=== PATIENT | female | born 1955 | race African-American/Black ===

== ENCOUNTER 2019-05-23 03:16 | Observation (INO) | payer OTHER, SELFPAY ==
[2019-05-23] VITALS (9 sets, daily range): BP systolic 133–166; BP diastolic 69–105; PULSE 68–94; RESP 14–20; TEMP 36.2–36.7; O2SAT 93–95; BMI 52.0
--- NOTE | ~2019-05-23 | CT_ITS ---
EXAMINATION: CT brain wo con DATE: 05/23/2019 04:21 INDICATION: Frequent falls. TECHNIQUE: Computed tomography (CT) of the head was performed without intravenous contrast. The mA wa s adjusted according to patient size. Iterative reconstruction technique was employed. The dose-lengt h product was 681.00 mGy-cm. COMPARISON: Head CT 10/02/2018 FINDINGS: There are scattered areas of low attenuation in the cerebral white matter, which is within normal limits for the patient's age. There is no intracranial hemorrhage, acute infarction, or abnorm al intracranial mass lesion. The ventricles are normal in size. There is multifocal dental disease. T he paranasal sinuses are clear. The mastoid air cells are normal. The orbits are normal. IMPRESSION: 1. Normal aging brain. Reviewed, dictated and finalized at location A. ECTOR AIR CARRIER IMPRESSION: 1. Normal aging brain.
--- NOTE | ~2019-05-23 | XR_ITS ---
EXAMINATION: XR knee LT 3V DATE: 05/23/2019 17:00 INDICATION: Generalized left knee pain TECHNIQUE: Anteroposterior, oblique and crosstable lateral views of the left knee were obtained COMPARISON: None. FINDINGS: Alignment is normal. No fracture. Severe tricompartmental osteoarthritis with remodeling of the medi al tibial plateau. Prominent hypertrophic marginal osteophytes along the medial and posterior aspects of the medial femoral condyle. No joint effusion/layering lipohemarthrosis. Soft tissues are unremar kable. IMPRESSION: 1. Medial compartment predominant severe tricompartmental osteoarthritis at the left knee. No acute o sseous abnormality. Reviewed, dictated and finalized at location A. RIAL MAN IMPRESSION: 1. Medial compartment predominant severe tricompartmental osteoarthritis at the left knee. No acute osseous abnormality.
--- NOTE | ~2019-05-23 | XR_ITS ---
EXAMINATION: XR foot LT 2V DATE: 05/23/2019 03:43 INDICATION: Left foot pain. TECHNIQUE: 2 views of left foot were obtained. COMPARISON: None. FINDINGS: Bone alignment is normal. No fracture. There is mild osteoarthritis of first metatarsophala ngeal joint and some of the interphalangeal joints. There is mild to moderate osteoarthritis of many of the midfoot joints. There is an enthesophyte at plantar aspect of calcaneal tuberosity. IMPRESSION: 1. Polyarticular osteoarthritis. Reviewed, dictated and finalized at location A. OTHEQUE DANCER
--- NOTE | 2019-05-23 03:48 | ED.GENADULT ---
HPI - General Adult General Chief complaint: Extremity Injury, Lower Stated complaint: leg pain Time Seen by Provider: 05/23/19 03:18 History of Present Illness HPI narrative: History limited due to the fact that she is uncooperative and an extremely poor historian. Brought in by EMS for falls and pain. She has reportedly fallen at least 4 times in the past 24 hours. The first time she was brought here by EMS she had labs and imaging done which did not reveal any acute issues and she was discharged home. EMS was called out 2 more times for falls and she declined transport. The last time she fell she again requested transport to the hospital. She reports pain in the right foot and leg. It is unclear when this pain started. It is also unclear why she is falling or if she has sustained any injury. Related Data Home Medications Medication Instructions Recorded Confirmed amiodarone 200 mg PO DAILY 05/22/19 amlodipine 5 mg PO DAILY 05/22/19 atorvastatin 40 mg PO DAILY 05/22/19 hydrochlorothiazide 25 mg PO DAILY 05/22/19 rivaroxaban [Xarelto] 20 mg PO DAILY 05/22/19 sitagliptin [Januvia] 100 mg PO DAILY 05/22/19 Allergies Allergy/AdvReac Type Severity Reaction Status Date / Time Penicillins Allergy Intermediate Rash Verified 05/23/19 03:24 ofloxacin Allergy Mild Rash Verified 05/23/19 03:24 Review of Systems Review of Systems: All systems reviewed & are unremarkable except as noted in HPI and below Constitutional: Constitutional: Denies fever(s) PMFSH Past Medical History Medical History Acid reflux disease with ulcer Arthritis Atrial fibrillation and flutter Chronic back pain Diabetes Hard of hearing HTN (hypertension) Hypercholesterolemia Opiate use Uses Tramadol daily per patient for arthritis Postmenopausal Surgical History Surgical History H/O total hysterectomy H/O tubal ligation Hx of cholecystectomy Family History Family History Father Patient's father is in good health Hypertension Sibling Patient's sister is in good health Patient's brother is in good health Mother Family history of malignant neoplasm Patient's mother is Social History Social History Smoking status: Never smoker Alcohol intake: never Substance use: never Exam Const: General: alert and ill appearing chronically Nutritional Appearance: obese morbidly obese Orientation/consciousness: patient oriented x3 HENMT: Head: normal to inspection Resp: Effort & Inspection: normal respiratory effort Auscultation: clear to auscultation bilaterally Cardio: Rhythm: abnormal rhythm irregularly irregular GI: GI Palp: Yes Soft to palpation and No Tenderness to palpation present (GI) Skin: General skin exam: normal color Neuro: General: patient oriented x3, moves all extremities and no focal motor deficits Speech: normal speech Extrem: Other: Inconsistent exam with diffuse tenderness in LLE Course Vital Signs Vital signs: Vital Signs Temperature 36.6 C 05/23/19 03:14 Pulse Rate 88 05/23/19 03:14 Respiratory Rate 16 05/23/19 03:14 Blood Pressure 166/105 H 05/23/19 03:14 Pulse Oximetry 95 05/23/19 03:14 Temperature 36.6 C 05/23/19 03:14 Pulse Rate 88 05/23/19 03:14 Respiratory Rate 16 05/23/19 03:14 Blood Pressure 166/105 H 05/23/19 03:14 Pulse Oximetry 95 05/23/19 03:14 Medical Decision Making [facility] Narrative Medical decision making narrative: Given her multiple falls and the fact that she lives alone without any support system she will need to be admitted for observation and possible placement. Medical Records Medical records reviewed: Yes I reviewed the patient's medical records. Vital Signs Vital Signs: Vital Signs Temper
[2019-05-23 04:02] LABS: Basophils Percent Auto 0.2 % (0.2-1.2); Eosinophils Percent Auto 0.1 % (0-4.4); Hematocrit 39.3 % (37.0-47.0); Hemoglobin 12.5 g/dL (12.0-15.0); Immature Granulocyte Absolute 0.03 K/mm3 (0.00-0.031); Immature Granulocyte Percent A 0.3 % (0-0.5); Lymphocytes Absolute Auto 1.62 K/mm3 (0.9-3.2); Lymphocytes Percent Auto 18.7 % (18.3-44.2); Mean Corpuscular HGB Conc 31.8 g/dl (32-36); Mean Corpuscular Hemoglobin 28.7 pg (26-34); Mean Corpuscular Volume 90.3 fl (80-100); Mean Platelet Volume 10.7 fl (7.4-10.4); Monocytes Absolute Auto 0.8 K/mm3 (0.1-0.6); Monocytes Percent Auto 9.4 % (2.6-8.5); Neutrophils Absolute Auto 6.2 K/mm3 (1.3-6.7); Neutrophils Percent Auto 71.3 % (45.5-73.1); Platelet Count Result 243 k/mm3 (150-375); Red Blood Count 4.35 M/mm3 (4.2-5.4); Red Cell Distribution Width 13.8 % (11.5-14.5); White Blood Count 8.7 K/mm3 (4.5-10.0)
[2019-05-23 04:13] LABS: Add Urine Microscopic? YES; Appearance Urine Cloudy (Clear); Bacteria Urine Trace /hpf; Bilirubin Urine Negative (Negative); Blood Urine 2+ (Negative); Color Urine Yellow (Yellow); Glucose Urine UA 1+ mg/dL (Negative); Ketones Urine Negative (Negative); Leukocyte Esterase Ur Negative LEU/UL (Negative); Mucus Urine Rare /lpf; Nitrate Urine Negative (Negative); Protein Urine 1+ mg/dL (Negative); RBC Urine >75 /hpf (0-2); Specific Grav Ur 1.016 (1.001-1.035); Urobilinogen Urine Negative mg/dL (<2.0); WBC Urine 0-3 /hpf
[2019-05-23 04:14] LABS: Alanine Aminotransferase 24 U/L (4-35); Albumin Level 4.1 g/dL (3.5-5.1); Alkaline Phosphatase 130 U/L (38-126); Aspartate Amino Transferase 26 U/L (14-36); Bilirubin,Total 0.7 mg/dL (0.2-1.3); Blood Urea Nitrogen 15 mg/dL (7-17); Calcium 9.4 mg/dL (8.4-10.2); Carbon Dioxide 29 mmol/L (22-30); Chloride 99 mmol/L (98-107); Estimated CRCL calculation 157 ml/min; Estimated Glomerular Filt Rate > 60; Glucose 285 mg/dL (65-105); Sodium 139 mmol/L (137-145)
[2019-05-23 04:17] LABS: INR 2.1; Prothrombin Time 23.1 Seconds (11.1-14.7)
[2019-05-23 04:18] LABS: Partial Thromboplastin Time 37.3 SECONDS (22.3-36.8)
--- NOTE | 2019-05-23 05:45 | ADMGEN ---
This patient, Macey Reyes, was admitted to Medical Room 349-01. Patient/family oriented to hospital policies and general routines including ID bracelet, bed and alarms, visiting hours, pain management, procedures, bathroom and other care routines, personal items, smoking policy, room service/diet, and visiting hours. Valuables list has been completed. Information on how to activate the Rapid Response Team has been discussed. Patient/Family are encouraged to report perceived risks to care and to ask questions if they do not understand what they are told or what they should do.
[2019-05-23] MEDS: LACTATED RINGERS 1,000 ML 125 ML IV CONT (06:43)
[2019-05-23] MEDS: ACETAMINOPHEN 500 MG TABLET 1000 MG PO (07:39)
[2019-05-23 07:49] LABS: Glucose Point of Care 255 (65-105)
[2019-05-23] MEDS: POTASSIUM CHLORIDE 20 MEQ TABLET 40 MEQ PO ×2 (08:05→18:06)
[2019-05-23] MEDS: INSULIN ASPART (*BKC) 100 UNITS/ML SUB-Q ×2 (08:41→12:51)
[2019-05-23] MEDS: TRAMADOL HCL 50 MG TABLET PO ×2 (09:51→16:32)
[2019-05-23] MEDS: FLUTICASONE PROPIONATE 0.05% NA SPR 16 GM BTL (*BKC) 2 SPRAY NASAL (09:53)
[2019-05-23] MEDS: ATORVASTATIN 40 MG TABLET PO (09:55)
[2019-05-23] MEDS: glipiZIDE 5 MG TABLET 10 MG PO (09:55)
[2019-05-23] MEDS: AMIODARONE HCL 200 MG TABLET PO (10:06)
[2019-05-23] MEDS: AMLODIPINE BESYLATE 5 MG TABLET PO (10:06)
[2019-05-23] MEDS: carvediloL 25 MG TABLET PO ×2 (10:06→21:11)
[2019-05-23] MEDS: LOSARTAN POTASSIUM 100 MG TABLET PO (10:07)
[2019-05-23] MEDS: PANTOPRAZOLE 40 MG TABLET PO (10:07)
[2019-05-23] MEDS: CLONIDINE HCL 0.2 MG TABLET PO ×2 (10:07→21:11)
--- NOTE | 2019-05-23 11:06 | PM.IMHP ---
H&P: HPI History of Present Illness Chief complaint: GENERALIZED WEAKNESS Narrative: Date of Service 05/23/19 The supervising physician for this history and physical is Dr. Indy Saucedo. Macey Reyes is a 63 year old female with history of non insulin-dependent type 2 diabetes mellitus with peripheral neuropathy, paroxysmal atrial fibrillation with chronic anticoagulation on Xarelto, hyperlipidemia, hypertension, osteoarthritis, who presented to the ED for evaluation after a fall. She has fallen 4 times in the last 2 days at home. She lives at home by herself. She presented to the ED yesterday, 05/22 after falling at home. Right hip and right shoulder were imaged in the ED and revealed osteoarthritis with no acute fractures. She was discharged home from the ED yesterday. She re-presented again early this morning to the ED after falling 3 more times at home. EMS was activated 2 more times yesterday following her discharge from the ED, but she declined transport back to the ED until the 3rd EMS visit last night. She reports using a walker for ambulation and tells me she has been getting progressively weaker over the last several weeks to months. She feels that her peripheral neuropathy contributes because she is not able to feel her feet very well. Routine labs on arrival are grossly normal aside from a mild hypokalemia. Vital signs are stable aside from blood pressure elevated 159/81 prior to her morning medications being resumed. Today she complains of left leg pain. Left foot x-ray shows again osteoarthritis without any fractures. CT head demonstrates no acute intracranial findings. She denies any recent illness, fevers, or chills. She denies any chest pain, shortness of breath, nausea, vomiting, diarrhea, constipation, hematochezia or melena, dysuria or hematuria. Patient and her daughter are concerned for her safety returning home. Patient is admitted to observation for multiple recent falls and generalized weakness. Review of Systems Review of Systems: Narrative: Patient complains of left leg pain today, otherwise no complaints. No chest pain, shortness of breath, nausea, or vomiting. Tolerating PO intake. Twelve systems were reviewed with pertinent positives and negatives as per HPI. [facility] Past Medical History Medical History (Updated 05/23/19 @ 16:37 by Leslie Redmond PA-C) Arthritis Chronic back pain Diabetes GERD (gastroesophageal reflux disease) Hard of hearing HTN (hypertension) Hypercholesterolemia Liver masses Following with Dr Yossi Diego in [place], being monitored conservatively with surveillance imaging. Opiate use Uses Tramadol daily per patient for arthritis Paroxysmal atrial fibrillation Peripheral neuropathy Postmenopausal Surgical History Surgical History H/O total hysterectomy 04/17/2011 H/O tubal ligation 1982 Hx of cholecystectomy 06/08/1996 Family History Family History Father Patient's father is in good health Hypertension Sibling Patient's sister is in good health Patient's brother is in good health Mother Patient's mother is Coronary artery disease Acute myocardial infarction Social History Social History (Updated 05/23/19 @ 11:20 by Leslie Redmond PA-C) Social History: Ms. 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 She reports she previously was a heavy drinker but now drinks only about 1 glass of wine per month. Never smoker. Reports remote history of marijuana use but not anymore. Her PCP is Dr Matteo Yen. Her surrogate decision maker is her daughter, Virgilio. She is full code status. Smoking status: Never smoker Alcohol intake: never Substance use: never Living arrangements: alone Gender identity (if verbalized by the pat
[2019-05-23 12:22] LABS: Glucose Point of Care 207 (65-105)
[2019-05-23] MEDS: polyethylene glycoL 3350 17 GM POWD.PACK PO (14:10)
[2019-05-23] MEDS: CALCIUM CARBONATE (TUMS) 500 MG (200 MG ELEMENTAL) PO (16:32)
--- NOTE | 2019-05-23 16:55 | PCCCNOTE ---
Met with patient, two daughters and granddaughter at bedside. Patient states she is unable to get out of bed. Daughter reports she is a household personal assistant paid through the state to care for her mother and if she goes to the [facility] she will loose her section 8 housing and the daughter will loose her position as being a paid household personal assistant for her mom. Both daughters report, she cannot go home, but she cannot go to the [facility]. Assured them that patient was discharged and that she would need to either go home or to a facility. Daughter reports, they already gave her bed away at [place]. I provided patient and 2 daughters each with a list of nursing homes that accept [employer] insurance. Encouraged them to look over it and decide where they would like referrals faxed to. Nelly RN, returned to room and stated that the provider has now cancelled discharge so they could get an XRay of her L knee. Will revisit situation after Xray.
[2019-05-23 18:04] LABS: Glucose Point of Care 165 (65-105)
[2019-05-23] MEDS: RIVAROXABAN 20 MG TABLET PO (18:06)
[2019-05-23 22:35] LABS: Glucose Point of Care 182 (65-105)
[2019-05-24] MEDS: TRAMADOL HCL 50 MG TABLET PO ×3 (00:33→16:40)
[2019-05-24 05:06] VITALS: BP 146/87; PULSE 75; RESP 14; TEMP 36.3; O2SAT 100
[2019-05-24] MEDS: ACETAMINOPHEN 500 MG TABLET 1000 MG PO (05:14)
[2019-05-24 06:14] LABS: Blood Urea Nitrogen 14 mg/dL (7-17); Calcium 8.9 mg/dL (8.4-10.2); Carbon Dioxide 30 mmol/L (22-30); Chloride 98 mmol/L (98-107); Estimated CRCL calculation 157 ml/min; Estimated Glomerular Filt Rate > 60; Glucose 212 mg/dL (65-105); Potassium 3.5 mmol/L (3.4-5.0); Sodium 134 mmol/L (137-145)
[2019-05-24] MEDS: glipiZIDE 5 MG TABLET 10 MG PO (08:29)
[2019-05-24 08:30] VITALS: PULSE 71
[2019-05-24] MEDS: AMIODARONE HCL 200 MG TABLET PO (08:30)
[2019-05-24] MEDS: carvediloL 25 MG TABLET PO (08:30)
[2019-05-24] MEDS: LOSARTAN POTASSIUM 100 MG TABLET PO (08:31)
[2019-05-24] MEDS: PANTOPRAZOLE 40 MG TABLET PO (08:31)
[2019-05-24] MEDS: AMLODIPINE BESYLATE 5 MG TABLET PO (08:31)
[2019-05-24] MEDS: FLUTICASONE PROPIONATE 0.05% NA SPR 16 GM BTL (*BKC) 2 SPRAY NASAL (08:31)
[2019-05-24] MEDS: CLONIDINE HCL 0.2 MG TABLET PO (08:31)
[2019-05-24] MEDS: ATORVASTATIN 40 MG TABLET PO (08:31)
[2019-05-24] MEDS: polyethylene glycoL 3350 17 GM POWD.PACK PO (08:32)
[2019-05-24 09:10] LABS: Glucose Point of Care 198 (65-105)
[2019-05-24 12:42] LABS: Glucose Point of Care 188 (65-105)
[2019-05-24 14:00] VITALS: BP 125/56; PULSE 86; RESP 12; TEMP 36.5; O2SAT 97
[2019-05-24] MEDS: RIVAROXABAN 20 MG TABLET PO (16:40)
[2019-05-24] MEDS: INSULIN ASPART (*BKC) 100 UNITS/ML SUB-Q (17:14)
[2019-05-24 17:29] LABS: Glucose Point of Care 213 (65-105)
--- NOTE | 2019-05-24 20:38 | PM.DS ---
DS: Diagnosis Admitting Diagnosis Admitting Diagnosis: Hypokalemia Discharge Diagnosis (1) Generalized weakness: Code(s): R53.1 - Weakness Status: Acute Assessment and Plan: Date of Service 05/24/19: Ms. Reyes is a 63yo F with history of osteoarthritis, type 2 diabetes mellitus, paroxysmal atrial fibrillation, and hypertension who presented to the ED on 05/22 and 05/23 due to multiple falls at home. Several x rays were performed which revealed diffuse osteoarthritis, no fracture or other acute bony abnormalities. All imaging noted below. Routine labs revealed hypokalemia and she received potassium supplementation. She could not stand or transfer independently and it was felt she would be unsafe discharge home back to her apartment where she lived alone. Placement was arranged at [facility]. She was discharged 05/24 in stable condition. Deconditioning, osteoarthritis pain, morbid obesity, chronic lower extremity edema, and peripheral neuropathy may contribute. (2) Frequent falls: Code(s): R29.6 - Repeated falls Status: Acute Assessment and Plan: See above. (3) Diabetes: Qualifiers: Diabetes mellitus type: type 2 Diabetes mellitus terminal block assembler insulin use: without terminal block assembler use Diabetes mellitus complication status: with neurologic complications Diabetes mellitus complication detail: with polyneuropathy Qualified Code(s): E11.42 - Type 2 diabetes mellitus with diabetic polyneuropathy Code(s): E11.9 - Type 2 diabetes mellitus without complications Status: Acute Assessment and Plan: Continue her home glipizide and Januvia. (4) Paroxysmal atrial fibrillation: Code(s): I48.0 - Paroxysmal atrial fibrillation Status: Acute Assessment and Plan: Stable. Her bottom wheeler is Dr. Wilson. Maintained on amiodarone, Coreg, Xarelto. (5) HTN (hypertension): Qualifiers: Hypertension type: essential hypertension Qualified Code(s): I10 - Essential (primary) hypertension Code(s): I10 - Essential (primary) hypertension Status: Acute Assessment and Plan: Continue home antihypertensive regimen with amlodipine, Coreg, losartan. HCTZ held due to hypokalemia. (6) Arthritis: Code(s): M19.90 - Unspecified osteoarthritis, unspecified site Status: Acute Assessment and Plan: Patient has a history of osteoarthritis and imaging confirms same. Continue her home tramadol as needed for pain. Follow up with PCP and/or ortho outpatient. (7) Hypokalemia: Code(s): E87.6 - Hypokalemia Status: Acute Assessment and Plan: Potassium low and replaced orally. Stable day of discharge and replaced. (8) DVT prophylaxis: Code(s): Z29.9 - Encounter for prophylactic measures, unspecified Status: Acute Assessment and Plan: Continue her home Xarelto. DS: Summary Time Spent with Patient Time attestation: Total time spent providing and/or coordinating discharge services: 35 minutes Exam Narrative: Exam Narrative: General: Morbidly obese female resting supine in bed in no acute distress. HEENT: Normocephalic, EOMI, oral mucosa moist, poor dentition. Cardiovascular: Rate and rhythm are regular. Systolic murmur heard best over left sternal border. Respiratory: Lungs clear to auscultation all gurrola. Non-labored breathing. Tolerating room air. Abdomen: Protuberant, soft, non-tender, bowel sounds present. Extremities: Peripheral pulses intact. No edema or erythema. Skin wrinkling on JOVANI lower extremities consistent with improved edema - patient reports her legs were previously very swollen. Neuro: No focal neurological deficits. Speech is clear. DS: Data Data Com
== END 2019-05-24 18:05 ==
LOC: ANHED 03:56 → ANH3MED 04:42
PROVIDERS: Physician Assistant; Admitting Provider Family Medicine; Emergency Provider Emergency Medicine; PCP Internal Medicine; Visit Provider Hospitalist
DX: R53.1 Weakness (principal); E87.6 Hypokalemia; M79.605 Pain in left leg; M19.90 Unspecified osteoarthritis, unspecified site; R60.0 Localized edema; E11.42 Type 2 diabetes mellitus with diabetic polyneuropathy; I48.0 Paroxysmal atrial fibrillation; I10 Essential (primary) hypertension; E78.5 Hyperlipidemia, unspecified; E66.01 Morbid (severe) obesity due to excess calories; Z68.43 Body mass index [BMI] 50.0-59.9, adult; R29.6 Repeated falls; W19.XXXA Unspecified fall, initial encounter; Z79.01 Long term (current) use of anticoagulants; Z79.84 Long term (current) use of oral hypoglycemic drugs; Z79.899 Other long term (current) drug therapy
CPT/HCPCS: 36415; 51701; 70450; 73562; 73620; 80048; 80053; 81001; 84132; 85025; 85610; 85730; 96360; 96361; 97162; 97166; 99285; A9270; G0378; G0379; J1815; J7120

== ENCOUNTER 2019-07-22 10:30 | Outpatient (RCR) | payer OTHER, SELFPAY | END 2019-07-22 23:59 | disposition home or self-care (01) | LOC: ANHAUDIO 10:30 | PROVIDERS: PCP Internal Medicine; Visit Provider Internal Medicine | DX: Z46.1 Encounter for fitting and adjustment of hearing aid (principal) | CPT/HCPCS: 99199; V5264 ==

== ENCOUNTER 2019-09-16 11:43 | Inpatient (IN) | payer OTHER, SELFPAY ==
[2019-09-16] VITALS (20 sets, daily range): BP systolic 81–204; BP diastolic 58–115; PULSE 70–123; RESP 6–29; TEMP 35.1–36.8; O2SAT 89–100; BMI 60.5
--- NOTE | ~2019-09-16 | XR_ITS ---
EXAMINATION: XR chest 1V portable DATE: 09/20/2019 06:08 INDICATION: Cardiac arrest. Acute respiratory failure. Edema. TECHNIQUE: frontal view of the chest was obtained. COMPARISON: Chest radiograph dated 09/19/19 FINDINGS: Endotracheal tube tip 4.2 cm above the anshu. Right internal jugular central venous catheter with di stal tip in the caudal superior vena cava. Nasogastric tube extends below the left hemidiaphragm wit h distal tip collimated off the study. Opacities in the left lower lung zone with blunting of the costophrenic angle consistent with small l eft pleural effusion and associated atelectasis and/or pneumonia. No pulmonary edema, pneumothorax or right pleural effusion. Cardiomegaly. IMPRESSION: 1. Small left pleural effusion with associated left basilar atelectasis and/or pneumonia. 2. Cardiomegaly. Reviewed, dictated and finalized at location A.
--- NOTE | ~2019-09-16 | XR_ITS ---
EXAMINATION: XR chest 1V portable DATE: 09/19/2019 06:00 INDICATION: Cardiac arrest. Acute respiratory failure. Edema. TECHNIQUE: frontal view of the chest was obtained. COMPARISON: Chest radiograph dated 09/18/2019 FINDINGS: Endotracheal tube tip 6.0 cm above the anshu. Right internal jugular central venous catheter with di stal tip at the mid superior vena cava. Nasogastric tube extends below the left hemidiaphragm with d istal tip collimated off the study. Marked decrease in the bilateral perihilar opacities consistent with resolving pulmonary edema. Gradi ent of hazy airspace opacities in the left mid to lower lung zone consistent with small posterior lay ering left pleural effusion with associated left basilar atelectasis and/or pneumonia. Cardiomegaly. IMPRESSION: 1. Near complete resolution of prior perihilar pulmonary edema likely related to congestive heart dwayne lure. 2. Small left pleural effusion with associated left basilar atelectasis and/or pneumonia. 3. Cardiomegaly. 4. Endotracheal tube tip 6.0 cm above the anshu. Could consider advancement by 4 cm. Reviewed, dictated and finalized at location A. IMPRESSION: 1. Near complete resolution of prior perihilar pulmonary edema likely related t o congestive heart failure. 2. Small left pleural effusion with associated left basilar atelectasis and/or pneumonia. 3. Cardiomegaly. 4. Endotracheal tube tip 6.0 cm above the anshu. Could consider advancement by 4 cm.
--- NOTE | ~2019-09-16 | XR_ITS ---
EXAMINATION: XR chest 1V portable DATE: 09/17/2019 05:54 INDICATION: Acute respiratory failure. TECHNIQUE: A single frontal view of the chest was obtained. COMPARISON: Chest single view 09/16/2019 FINDINGS: There are airspace opacities in all lung zones bilaterally with a perihilar predominance, r ight worse than left. No pleural effusion or pneumothorax. Cardiomegaly is noted. The endotracheal tu be tip is 3.2 cm above the anshu. A right internal jugular central venous catheter is seen with tip at the superior cavoatrial junction. IMPRESSION: 1. Diffuse lung disease with worsening at the lung bases, consistent with pulmonary edema versus pneu monia. 2. Cardiomegaly. Reviewed, dictated and finalized at location A. IMPRESSION: 1. Diffuse lung disease with worsening at the lung bases, consistent with pulmo nary edema versus pneumonia. 2. Cardiomegaly.
--- NOTE | ~2019-09-16 | XR_ITS ---
XR chest ET placement DATE: 09/16/2019 12:32 INDICATION: Respiratory distress TECHNIQUE: Portable AP chest on 09/16/2019 at 1222 hours COMPARISON: 01/27/2019 AP and lateral chest FINDINGS: ET tube in satisfactory position approximately 3 cm above anshu. Moderate elevation right diaphragm. There are extensive bilateral pulmonary infiltrates which predominate centrally, suggesting pulmonary edema. Pneumonia, aspiration and ARDS are additional considerations. An NG tube is identified passing into the stomach. IMPRESSION: Extensive bilateral pulmonary infiltrates with central prominence, suggesting pulmonary e katey most likely ET and NG tubes in satisfactory position Reviewed, dictated and finalized at Location A. Reviewed, dictated and finalized at location A. IMPRESSION: Extensive bilateral pulmonary infiltrates with central prominence, suggesting pulmonary edema most likely ET and NG tubes in satisfactory position
--- NOTE | ~2019-09-16 | XR_ITS ---
XR abdomen NG/feed tube insert DATE: 09/16/2019 12:32 INDICATION: Nasogastric tube placement TECHNIQUE: Portable supine AP view of mid to upper abdomen COMPARISON: None FINDINGS: There is a nasogastric tube in the upper body of the stomach, the proximal port situated fa r beyond the diaphragmatic hiatus. There is gaseous distention of the stomach. There is some gaseous distended dilatation of the proximal small bowel. IMPRESSION: NG tube in proximal stomach Reviewed, dictated and finalized at Location A. Reviewed, dictated and finalized at location A. IMPRESSION: NG tube in proximal stomach
--- NOTE | ~2019-09-16 | XR_ITS ---
EXAMINATION: XR chest 1V portable DATE: 09/21/2019 05:59 INDICATION: Cardiac arrest. Acute respiratory failure. Edema. TECHNIQUE: frontal view of the chest was obtained. COMPARISON: Chest radiograph dated 09/20/2019 FINDINGS: Endotracheal tube tip 4.1 cm above the anshu. Right internal jugular central venous catheter with di stal tip near the superior cavoatrial junction. Nasogastric tube extends below the left hemidiaphrag m with distal tip collimated off the study. Increasing bilateral perihilar opacities. Persistent opacities in the left lower lung zone with blunt ing at the left as phrenic angle consistent with small pleural effusion and associated atelectasis an d/or pneumonia. No pneumothorax. Cardiomegaly. IMPRESSION: 1. Increasing bilateral perihilar opacities most likely pulmonary edema with differential including p neumonia. 2. Opacities in the left lower lung zone consistent with small left pleural effusion and associated a telectasis and/or pneumonia. 3. Cardiomegaly. Reviewed, dictated and finalized at location A. IMPRESSION: 1. Increasing bilateral perihilar opacities most likely pulmonary edema with di fferential including pneumonia. 2. Opacities in the left lower lung zone consistent with small left pleural eff usion and associated atelectasis and/or pneumonia. 3. Cardiomegaly.
--- NOTE | ~2019-09-16 | CT_ITS ---
EXAMINATION: CT brain wo con DATE: 09/21/2019 09:44 INDICATION: Altered mental status TECHNIQUE: Computed tomography (CT) of the head was performed without intravenous contrast. Sagittal and coronal reconstructions were performed. The mA was adjusted according to patient size. Iterative reconstruction technique was employed. The dose-length product was 681.00 mGy-cm. COMPARISON: head CT dated 05/23/2019 FINDINGS: There is diffuse swelling of the brain with cytotoxic edema characterized by significant decrease in gtz-white matter differentiation and effacement of the sulci, ventricles and basal cisterns. The tanika ear increased attenuation along the surface of the brain appear to represent vessels the density of w hich is accentuated by the surrounding lower attenuation cerebral edema. No evident acute intracrania l hemorrhage or abnormal extra axial fluid collection. The orbits and mastoid air cells are normal. C omplete opacification of the left sphenoid and ethmoid sinuses and partial opacification of the left maxillary, left frontal and right sphenoid and ethmoid sinuses. Mild mucosal thickening in the right maxillary sinus. No fracture. IMPRESSION: 1. Cytotoxic edema and swelling throughout the brain with effacement of the subarachnoid spaces, vent ricles and basal cisterns suggesting sequela of global anoxic injury. Reviewed, dictated and finalized at location A. IMPRESSION: 1. Cytotoxic edema and swelling throughout the brain with effacement of the sub arachnoid spaces, ventricles and basal cisterns suggesting sequela of global an oxic injury.
--- NOTE | ~2019-09-16 | XR_ITS ---
EXAMINATION: XR chest port-a-cath/central EXAM DATE: 09/16/2019 16:45 INDICATION: Central line placement. TECHNIQUE: Portable AP frontal chest x-ray was obtained. Comparison is made to prior examination from earlier same date. FINDINGS: There is a new right-sided IJ line in position. Endotracheal tube tip is 3 centimeters abo ve the anshu (ideal range is between 2 to 5 cm). There is a nasogastric tube seen with tip collimat ed off the study, but below the left hemidiaphragm. There is worsening right mid and upper lung zone consolidation. The left perihilar consolidation appe ars unchanged. Mild cardiomegaly. There is no pneumothorax suspected. There are no pleural effusions. IMPRESSION: 1. Line(s) and tube(s) in position. 2. Extensive bilateral airspace disease with mild progression on the right. Reviewed, dictated and finalized at location A.
--- NOTE | ~2019-09-16 | XR_ITS ---
EXAMINATION: XR chest 1V portable INDICATION: Respiratory failure TECHNIQUE: Portable AP chest at 0529 hours COMPARISON: 09/17/2019 FINDINGS: The endotracheal tube ends approximately 2.3 cm above the anshu. The nasogastric tube is f ollowed as far as the stomach. Its tip is beyond the inferior margin of the radiograph. A right inter nal jugular central venous catheter ends with its tip at the superior cavoatrial junction. Patchy dedra ateral airspace opacities persist without significant change in all lung zones. There is stable cardi omegaly. No pleural effusion or pneumothorax is identified. IMPRESSION: 1. Diffuse lung disease without significant change, consistent with pulmonary edema and/or pneumonia. 2. Stable cardiomegaly. Reviewed, dictated and finalized at location A. IMPRESSION: 1. Diffuse lung disease without significant change, consistent with pulmonary e katey and/or pneumonia. 2. Stable cardiomegaly.
[2019-09-16 12:06] LABS: Base Excess ABG -23.6 mEq/l (+/-2.0); Carboxyhemoglobin 0.3 % THb (0-2.0); Fractional Inspired Oxygen 100 %; HCO3 ABG 12.1 mEq/l (22.0-26.0); Methemoglobin ABG 0.3 %THb (0-1.5); Oxygen Content ABG 16.6 %vol (16.0-22.0); Oxygen Saturation ABG 94.8 % (95.0-100.0); Oxyhemoglobin 94.4 % THb (90.0-100.0); PO2 ABG 137.1 mmHg (80.0-100.0); PO2 FiO2 Ratio Arterial Blood 1.37 %; Total Hemoglobin 12.3 g/dL (12.0-18.0)
[2019-09-16 12:07] LABS: Device AMBU BAG; Modified Allen's Test Pass; PCO2 ABG 84.9 mmHg (35.0-45.0); Site Drawn RIGHT RADIAL; pH ABG 6.773 (7.350-7.450)
--- NOTE | 2019-09-16 12:34 | ED.CPR ---
HPI - CPR General Chief Complaint: Cardiac Arrest/CPR Stated Complaint: CARDIAC ARREST Time Seen by Provider: 09/16/19 11:43 Source: EMS and old records reviewed Mode of arrival: EMS Limitations: clinical condition History of Present Illness HPI narrative: Patient is a 64-year-old female who presents to the emergency department via EMS in cardiac arrest. Patient was at home and was moving for her chair when she felt anxious and collapsed. On arrival of EMS, patient was found to be in PEA and respiratory arrest. Patient received CPR and 3 rounds of epinephrine. Patient was intubated by EMS with 7.5 ET tube and had good capnography waveform noted by paramedics. Reported history from EMS was diabetes and heart failure. MD complaint: stopped breathing and collapsed during rest Timing confirmed by: family member Place: home Initial findings in the field: unresponsive, no respirations and PEA Related Data Home Medications Medication Instructions Recorded Confirmed Xarelto 20 mg PO DAILY 05/22/19 09/16/19 amiodarone 200 mg PO DAILY 05/22/19 09/16/19 atorvastatin 40 mg PO DAILY 05/22/19 09/16/19 fluticasone propionate [Flonase 2 spray INTRANASAL DAILY 05/23/19 09/16/19 Allergy Relief] amlodipine 5 mg PO DAILY 09/16/19 09/16/19 Allergies Allergy/AdvReac Type Severity Reaction Status Date / Time Penicillins Allergy Intermediate Rash Verified 05/23/19 03:24 ofloxacin Allergy Mild Rash Verified 05/23/19 03:24 Review of Systems Review of Systems: ROS unobtainable: Yes unobtainable due to endotracheal tube and unobtainable due to medical condition PENDING SALE TO [facility] Past Medical History Medical History Arthritis Chronic back pain Diabetes GERD (gastroesophageal reflux disease) Hard of hearing HTN (hypertension) Hypercholesterolemia Liver masses Following with Dr Yossi Diego in [place], being monitored conservatively with surveillance imaging. Opiate use Uses Tramadol daily per patient for arthritis Paroxysmal atrial fibrillation Peripheral neuropathy Postmenopausal Surgical History Surgical History H/O total hysterectomy 04/17/2011 H/O tubal ligation 1982 Hx of cholecystectomy 06/08/1996 Family History Family History Father Patient's father is in good health Hypertension Sibling Patient's sister is in good health Patient's brother is in good health Mother Patient's mother is Coronary artery disease Acute myocardial infarction Social History Social History Social History: Ms. 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 She reports she previously was a heavy drinker but now drinks only about 1 glass of wine per month. Never smoker. Reports remote history of marijuana use but not anymore. Her PCP is Dr Matteo Yen. Her surrogate decision maker is her daughter, Virgilio. She is full code status. Smoking status: Never smoker Alcohol intake: never Substance use: never Gender identity (if verbalized by the patient): Female Spiritual care concerns: No Agree to blood products: Yes Exam Const: General: patient obtunded Nutritional Appearance: obese morbidly obese Limitations: altered mental status Eyes: Pupils: Dilated pupils and Fixed pupils Resp: Effort & Inspection: other (Apneic, ET tube in place) Auscultation: rales diffuse and other (Breath sounds equal) Cardio: Rate: regular rate Rhythm: regular rhythm Other: Initially pulseless, then with radial pulses palpable bilaterally as well as carotid. GI: Inspection: distended GI Palp: Yes Soft to palpation Auscultation: Hypoactive bowel sounds present Other: Shiley Skin: General skin exam: normal color
[2019-09-16 12:43] LABS: Basophils Percent Auto 0.5 % (0.2-1.2); Eosinophils Absolute Auto 0.1 K/mm3 (0-0.3); Eosinophils Percent Auto 1.9 % (0-4.4); Hematocrit 40.6 % (37.0-47.0); Hemoglobin 11.2 g/dL (12.0-15.0); INR 2.1; Immature Granulocyte Absolute 0.12 K/mm3 (0.00-0.031); Immature Granulocyte Percent A 1.9 % (0-0.5); Lymphocytes Absolute Auto 4.38 K/mm3 (0.9-3.2); Lymphocytes Percent Auto 68.2 % (18.3-44.2); Mean Corpuscular HGB Conc 27.6 g/dl (32-36); Mean Corpuscular Hemoglobin 27.9 pg (26-34); Mean Platelet Volume 10.5 fl (7.4-10.4); Monocytes Absolute Auto 0.4 K/mm3 (0.1-0.6); Monocytes Percent Auto 6.4 % (2.6-8.5); Neutrophils Absolute Auto 1.4 K/mm3 (1.3-6.7); Neutrophils Percent Auto 21.1 % (45.5-73.1); Nucleated Red Blood Cells Perc 0.6 % (0.0-0.2); Partial Thromboplastin Time 42.3 SECONDS (22.3-36.8); Platelet Count Result 238 k/mm3 (150-375); Prothrombin Time 22.8 Seconds (11.1-14.7); Red Blood Count 4.02 M/mm3 (4.2-5.4); Red Cell Distribution Width 14.6 % (11.5-14.5); White Blood Count 6.4 K/mm3 (4.5-10.0)
[2019-09-16 12:46] LABS: Hypochromasia 1+ (NORMAL); Platelet Estimate Adequate (Adequate)
[2019-09-16] MEDS: DOPamine 400 MG/D5W 250 ML 400 MG/250 ML BAG 78 MG IV CONT (12:56)
[2019-09-16 12:59] LABS: Add Urine Microscopic? NO; Appearance Urine Clear (Clear); Bilirubin Urine Negative (Negative); Blood Urine Negative (Negative); Color Urine Colorless (Yellow); Glucose Urine UA Negative (Negative); Ketones Urine Negative (Negative); Leukocyte Esterase Ur Negative LEU/UL (Negative); Nitrate Urine Negative (Negative); Protein Urine Negative (Negative); Specific Grav Ur 1.005 (1.001-1.035); Urobilinogen Urine Negative mg/dL (<2.0)
[2019-09-16 13:06] LABS: Alanine Aminotransferase 60 U/L (4-35); Albumin Level 3.4 g/dL (3.5-5.1); Alkaline Phosphatase 100 U/L (38-126); Aspartate Amino Transferase 111 U/L (14-36); Bilirubin,Total 0.2 mg/dL (0.2-1.3); Blood Urea Nitrogen 15 mg/dL (7-17); Calcium 8.6 mg/dL (8.4-10.2); Carbon Dioxide 18 mmol/L (22-30); Chloride 102 mmol/L (98-107); Estimated Glomerular Filt Rate > 60; Glucose 310 mg/dL (65-105); Potassium 4.4 mmol/L (3.4-5.0); Sodium 139 mmol/L (137-145)
--- NOTE | 2019-09-16 13:07 | PC.NURSE ---
pt arrived to ED at 1140 via EMS with ACLS in progress and pt already intubated at 22 to the teeth per EMS. See code flowsheet for full ACLS interventions. Pt reportedly was in a lukas lift and home moving into her wheelchair when she felt anxious and went unresponsive. Pulse back at 1149 83bpm radially with initial blood pressure of 139/110. OG placed, CXR, KUB obtained and ET tube adjusted to 21 at the teeth per MD order. Chest compressions resumed at 1210 briefly d/t bradycardia of 27 with additional Epi given per order. See flowsheet. Dobutamine drip started at 1228 then stopped d/t hypotension at 1247 with an intake of 31mls. Dopamine drip started at 1256 at 10mcg/kg/min per MD order.
[2019-09-16 13:17] LABS: NT Pro B Type Natriuretic Pept 165 PG/ML (5-100); Troponin I 0.024 ng/mL (0.000-0.034)
[2019-09-16 13:55] LABS: Magnesium 2.4 mg/dL (1.6-2.3); Phosphorus 8.1 mg/dL (2.5-4.5)
[2019-09-16 14:04] LABS: Lactic Acid Reflex 18.3 mmol/L (0.7-2.1)
--- NOTE | 2019-09-16 14:32 | WPDCNINT ---
Assessment and Plan Assessment and plan (1) Cardiac arrest: Code(s): I46.9 - Cardiac arrest, cause unspecified Status: Acute Assessment and Plan: patient with prolonged cardiac arrest, between 25-30 before ROSC - lactic acid of 18.3 - cardiac arrest most likely respiratory event, given her chest x-ray shows significant pulmonary edema bilaterally - she has also been swabbed for COVID-19 - patient in shock on dopamine since she was bradycardic - unable to obtain head CT, due to her body habitus. - Will not be able to place her on hypothermia protocol given her shock and unable to perform a head CT since patient is on Xarelto - will start patient on Keppra given prolonged cardiac arrest and risk of seizures - will consult Neurology in a.m. - will obtain echocardiogram (2) Acute hypercapnic respiratory failure: Code(s): J96.02 - Acute respiratory failure with hypercapnia Status: Acute Assessment and Plan: acute hypercapnic respiratory failure likely related to pulmonary edema, pneumonia, congestive heart failure, COVID-19 - continue CMV mode of ventilation, - chest x-ray and initial ABGs reviewed. increased the PEEP to 10, rate to 26, I to E ratio 1:3. - will repeat ABGs - will start bronchodilators - will also place patient on ceftriaxone, doxycycline ( patient was bradycardic in the ER will not use azithromycin) (3) Metabolic acidosis: Code(s): E87.2 - Acidosis Status: Acute Assessment and Plan: metabolic acidosis from lactic acidosis - will trend lactic acid levels (4) Type 2 diabetes mellitus with diabetic polyneuropathy: Code(s): E11.42 - Type 2 diabetes mellitus with diabetic polyneuropathy Status: Acute Assessment and Plan: patient is hyperglycemic, will start patient on Accu-Cheks and sliding scale insulin - if continues to remain hyperglycemic will start insulin infusion - patient takes glipizide and Januvia at home (5) Paroxysmal atrial fibrillation: Code(s): I48.0 - Paroxysmal atrial fibrillation Status: Acute Assessment and Plan: patient with history of paroxysmal atrial fibrillation, she is on Xarelto at home - will monitor for now, hold Xarelto for now (6) GERD (gastroesophageal reflux disease): Code(s): K21.9 - Gastro-esophageal reflux disease without esophagitis Status: Acute Assessment and Plan: will start Protonix (7) Morbid obesity with BMI of 50.0-59.9, adult: Code(s): E66.01 - Morbid (severe) obesity due to excess calories; Z68.43 - Body mass index (BMI) 50.0-59.9, adult Status: Acute Assessment and Plan: chronic (8) Hypercholesterolemia: Code(s): E78.00 - Pure hypercholesterolemia, unspecified Status: Acute Assessment and Plan: patient on atorvastatin at home, will hold for now (9) HTN (hypertension): Qualifiers: Hypertension type: essential hypertension Qualified Code(s): I10 - Essential (primary) hypertension Code(s): I10 - Essential (primary) hypertension Status: Acute Assessment and Plan: patient is in shock, hold all antihypertensive (10) MAXI (obstructive sleep apnea): Code(s): G47.33 - Obstructive sleep apnea (adult) (pediatric) Status: Acute Assessment and Plan: history of obstructive sleep apnea, currently intubated (11) DVT prophylaxis: Code(s): Z29.9 - Encounter for prophylactic measures, unspecified Status: Acute Assessment and Plan: will start Lovenox (12) Suspected 2019 novel coronavirus infection: Code(s): Z20.828 - Contact with and (suspected) exposure to other viral communicable diseases Status: Acute Assessment and Plan: patient has been swabbed for SARS-CoV-2 PCR - will place patient on airborne, droplet and contact isolation Additional Plan discussed with daughter, Manuel Reese in the ER
[2019-09-16] MEDS: DOPamine 400 MG/D5W 250 ML 400 MG/250 ML BAG 117 MG IV CONT (15:15)
--- NOTE | 2019-09-16 15:21 | ADMGEN ---
This patient, Macey Reyes, was admitted to Intensive Care Unit-1. Patient/family oriented to hospital policies and general routines including ID bracelet, bed and alarms, visiting hours, pain management, procedures, bathroom and other care routines, personal items, smoking policy, room service/diet, and visiting hours. Valuables list has been completed. Information on how to activate the Rapid Response Team has been discussed. Patient/Family are encouraged to report perceived risks to care and to ask questions if they do not understand what they are told or what they should do.
[2019-09-16] MEDS: RAPID SEQUENCE INTUBATION KIT 1 EACH (15:28)
[2019-09-16 15:42] LABS: Reflex Lactic Acid Yes or No Add Lactic
--- NOTE | 2019-09-16 16:00 | PC.NURSE ---
Pt core temp of 95.1. Dr. Sterlingly notified. New order to place pt on bear hugger to achieve normal core temp
--- NOTE | 2019-09-16 16:00 | PM.IMHP ---
H&P: HPI History of Present Illness Chief complaint: Cardiac arrest Narrative: Macey Reyes is a 64-year-old morbidly obese female with obstructive sleep apnea, type 2 diabetes mellitus, paroxysmal atrial fibrillation, hypertension, and several other comorbidities who presented to the emergency department earlier today via EMS from home after a witnessed cardiac arrest. The patient is currently unresponsive and intubated, and thus the following history is obtained via a review of her electronic medical records as well as discussions with her daughter via phone. The patient did rehab for 1.5 months at [facility] at the beginning of 2019, but has been back in her own apartment for couple of months. She has been bed-bound since that time, and is cared for by her daughter. She is unable to get out of bed without the aid of a Debbie, and uses a bedpan. She has seemed to in her usual state of health recently, and has had no complaints according to the daughter. This morning, she was expecting a new mattress to be delivered and thus her daughter and grandchild were attempting to transfer her to a wheelchair using the Debbie lift. ?She just started to panic? when they began to lift her in the Debbie. Daughter notes that the patient was complaining of shortness of breath and was breathing rapidly, and she assumed that she was having a panic attack. Daughter went to get her is Xanax, and when the patient went to take the medication ?her eyes just went blank? and she became unresponsive. She called 911, and on EMS arrival approximately 5 to 10 minutes later, the patient was found apneic and in PEA. She was intubated in the field, and the patient reportedly received 3 rounds of epinephrine prior to return of spontaneous circulation. Daughter reports to me that she did not start CPR ?because I just panicked.? Estimated down time was at least 25 minutes. Review of Systems Review of Systems: Narrative: Unobtainable as the patient is currently intubated and unresponsive. [facility] Past Medical History Medical History Arthritis Chronic back pain GERD (gastroesophageal reflux disease) Hard of hearing Hypercholesterolemia Hypertension Iron deficiency anemia Liver masses > 20 masses were noted on previous CT of the abdomen pelvis, concerning for metastatic disease. She is followed by Dr Yossi Diego in [place], and these masses are being monitored conservatively with surveillance imaging. Morbid obesity Obstructive sleep apnea Patient does not use CPAP at nighttime. Opiate use Uses Tramadol daily per patient for arthritis Osteoarthritis Paroxysmal atrial fibrillation Type 2 diabetes mellitus with diabetic polyneuropathy Surgical History Surgical History H/O total hysterectomy 04/17/2011 H/O tubal ligation 1982 Hx of cholecystectomy 06/08/1996 Family History Family History Father Patient's father is in good health Hypertension Sibling Patient's sister is in good health Patient's brother is in good health Mother Patient's mother is Coronary artery disease Acute myocardial infarction Social History Social History (Updated 09/17/19 @ 01:40 by Johanna Crocker PA-C) Social History: Ms. Reyes lives in her own apartment in [place]. 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 She was a heavy drinker in the past, but now consumes maybe 1 glass of wine per month. She is a lifelong nonsmoker. She has used marijuana in the past. Her PCP is Dr Matteo Yen. Her surrogate decision maker is her daughter, Virgilio. She is full code status. Spiritual care concerns: No Agree to blood products: Yes Meds Home Medications and Allergies Home Medications Medication Instructions Record
--- NOTE | 2019-09-16 16:06 | P.PCNBED_ITS ---
Procedures Central Line Placement Right IJ: Central Line Date: 09/16/19 Central Line Time: 15:17 Discussed w/ the patient/family/POA,the placement of a central venous catheter, including its clinical necessity/indication & associated potential risks, benifits and alternatives.: Yes The patient/family/POA understand(s) and acknowledge(s) the need to proceed with central venous catheter insertion as an important element of the patient's clinical management.: Yes Time Out Performed: Yes Patient Position: supine Patient placed on monitor/pulse ox: Yes Provider Prep: mask, sterile gown, sterile gloves, Max. sterile barrier precautions and hand hygiene Central line prep: Chlorhexidine scrub and sterile full body sheet applied Local anesthesia used: lidocaine 1% Amount of anesthesia used (ml): 3 Ultrasound used for placement: Yes Central line lumen inserted: triple Mauritanian: 16 Length (cm): 16 Depth of Insertion (cm): 16 Post procedure: sutured in place, good blood return, all ports aspirated, flushed, capped, tegaderm, hemostatic disc, antimicrobial disc and aseptic technique maintained throughout procedure Post procedure x-ray: tip of catheter in good position Patient tolerated procedure: well Complications: none
--- NOTE | 2019-09-16 16:08 | P.PCNBED_ITS ---
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
--- NOTE | 2019-09-16 16:15 | ECG_ITS ---
Measurements Intervals [place] Rate: 57 P: 96 WI: 262 QRS: 17 QRSD: 156 T: 84 QT: 497 QTc: 484 Interpretive Statements SINUS BRADYCARDIA WITH SINUS ARRHYTHMIA WITH FIRST DEGREE AV BLOCK LEFT BUNDLE BRANCH BLOCK BASELINE WANDER- I, II, III, AVR, AVL, AVF, V1-V2, V4-V6 ABNORMAL ECG Electronically Signed On 09-16-2019 17:10:51 CDT by Prashanth Wilson D.O.
[2019-09-16 16:20] LABS: Alveolar/Arterial O2 Gradient 250.6 mmHg; Base Excess ABG -5.6 mEq/l (+/-2.0); Fractional Inspired Oxygen 50 %; HCO3 ABG 18.6 mEq/l (22.0-26.0); Oxygen Content ABG 18.6 %vol (16.0-22.0); Oxygen Saturation ABG 93.6 % (95.0-100.0); Oxyhemoglobin 92.6 % THb (90.0-100.0); PCO2 ABG 32.9 mmHg (35.0-45.0); PO2 ABG 68.9 mmHg (80.0-100.0); PO2 FiO2 Ratio Arterial Blood 1.38 %; Total Hemoglobin 14.3 g/dL (12.0-18.0); pH ABG 7.371 (7.350-7.450)
[2019-09-16 16:21] LABS: Arterial Blood Gas Vent Mode ASSIST CONTROL; Arterial Blood Gas Ventilator rate 26 /MIN; Device VENTILATOR; Site Drawn ARTLINE
[2019-09-16 16:22] LABS: Arterial Blood Gas PEEP 10 cmH2O; Arterial Blood Gas Tidal Volume 450 ml
[2019-09-16 17:11] LABS: Lactic Acid Reflex 5.1 mmol/L (0.7-2.1)
[2019-09-16] MEDS: levETIRAcetam 1000MG/NACL100ML 1,000 MG/100 ML BAG 400 MG IVPB (17:22)
[2019-09-16 17:23] LABS: Troponin I 0.728 ng/mL (0.000-0.034)
[2019-09-16] MEDS: NOREPINEPHRINE 8 MG/D5W 250 ML 8 MG/250 ML BAG 18.8 MG IV CONT (17:59)
[2019-09-16 19:52] LABS: Base Excess ABG -5.5 mEq/l (+/-2.0); HCO3 ABG 19.5 mEq/l (22.0-26.0); PCO2 ABG 36.8 mmHg (35.0-45.0); PO2 ABG 75.2 mmHg (80.0-100.0); pH ABG 7.343 (7.350-7.450)
[2019-09-16 19:53] LABS: Alveolar/Arterial O2 Gradient 591.5 mmHg; Oxygen Content ABG 17.1 %vol (16.0-22.0); Oxygen Saturation ABG 93.4 % (95.0-100.0)
--- NOTE | 2019-09-16 19:53 | PC.NURSE ---
Dopamine stopped per Dr. Stephens's order. Pt's BP continued to increase. About an hour later patient's BP started to decline. Dr. Stephens notified of critical labs as well as patient's BP. New order for Levophed.
[2019-09-16 19:54] LABS: Device VENTILATOR; Fractional Inspired Oxygen 100 %; Oxyhemoglobin 93.4 % THb (90.0-100.0); PO2 FiO2 Ratio Arterial Blood 0.75 %; Site Drawn ARTLINE
[2019-09-16 19:55] LABS: Arterial Blood Gas PEEP 10 cmH2O; Arterial Blood Gas Tidal Volume 450 ml; Arterial Blood Gas Vent Mode CMV; Arterial Blood Gas Ventilator rate 20 /MIN
[2019-09-16 20:22] LABS: Creatine Kinase 510 U/L (30-135)
[2019-09-16 20:22] LABS: Lactic Acid Reflex 3.8 mmol/L (0.7-2.1)
[2019-09-16 20:23] LABS: Blood Urea Nitrogen 22 mg/dL (7-17); Calcium 8.3 mg/dL (8.4-10.2); Carbon Dioxide 23 mmol/L (22-30); Chloride 107 mmol/L (98-107); Estimated Glomerular Filt Rate > 60; Glucose 242 mg/dL (65-105); Potassium 3.2 mmol/L (3.4-5.0); Sodium 138 mmol/L (137-145)
[2019-09-16 20:29] LABS: Hemoglobin A1C 6.7 % (<5.7)
[2019-09-16] MEDS: KCL 20 MEQ/SW 100 ML 100 ML 50 MEQ IVPB (21:38)
[2019-09-16 21:50] LABS: Free T4 Free Thyroxine Reflex 0.75 ng/dL (0.78-2.19)
[2019-09-17] VITALS (20 sets, daily range): BP systolic 99–154; BP diastolic 52–77; PULSE 71–85; RESP 20–25; TEMP 35.8–36.8; O2SAT 95–100; BMI 59.7
[2019-09-17] MEDS: INSULIN ASPART (*BKC) 100 UNITS/ML SUB-Q ×2 (01:04→06:19)
[2019-09-17 03:03] LABS: Glucose Point of Care 219 (65-105)
[2019-09-17 04:59] LABS: Alveolar/Arterial O2 Gradient 580.7 mmHg; Base Excess ABG -2.2 mEq/l (+/-2.0); Carboxyhemoglobin 0.5 % THb (0-2.0); Fractional Inspired Oxygen 100 %; HCO3 ABG 21.5 mEq/l (22.0-26.0); Methemoglobin ABG 0.1 %THb (0-1.5); Oxygen Content ABG 18.1 %vol (16.0-22.0); Oxygen Saturation ABG 97.7 % (95.0-100.0); Oxyhemoglobin 96.4 % THb (90.0-100.0); PCO2 ABG 33.6 mmHg (35.0-45.0); PO2 ABG 98.7 mmHg (80.0-100.0); PO2 FiO2 Ratio Arterial Blood 0.99 %; Total Hemoglobin 13.3 g/dL (12.0-18.0); pH ABG 7.424 (7.350-7.450)
[2019-09-17 05:03] LABS: Site Drawn ARTLINE
[2019-09-17 05:04] LABS: Device VENTILATOR
[2019-09-17 05:05] LABS: Arterial Blood Gas PEEP 10 cmH2O; Arterial Blood Gas Tidal Volume 450 ml; Arterial Blood Gas Vent Mode CMV; Arterial Blood Gas Ventilator rate 20 /MIN
[2019-09-17 05:41] LABS: Basophils Percent Auto 0.5 % (0.2-1.2); Hematocrit 37.9 % (37.0-47.0); Hemoglobin 12.1 g/dL (12.0-15.0); Immature Granulocyte Absolute 0.04 K/mm3 (0.00-0.031); Immature Granulocyte Percent A 0.5 % (0-0.5); Lymphocytes Absolute Auto 0.79 K/mm3 (0.9-3.2); Lymphocytes Percent Auto 9.5 % (18.3-44.2); Mean Corpuscular HGB Conc 31.9 g/dl (32-36); Mean Corpuscular Hemoglobin 28.3 pg (26-34); Mean Corpuscular Volume 88.8 fl (80-100); Mean Platelet Volume 9.9 fl (7.4-10.4); Monocytes Absolute Auto 0.5 K/mm3 (0.1-0.6); Monocytes Percent Auto 6.5 % (2.6-8.5); Neutrophils Absolute Auto 6.9 K/mm3 (1.3-6.7); Platelet Count Result 222 k/mm3 (150-375); Red Blood Count 4.27 M/mm3 (4.2-5.4); Red Cell Distribution Width 14.1 % (11.5-14.5); White Blood Count 8.3 K/mm3 (4.5-10.0)
[2019-09-17 05:54] LABS: Lactic Acid 2.7 mmol/L (0.7-2.1)
[2019-09-17 06:13] LABS: Alanine Aminotransferase 192 U/L (4-35); Albumin Level 3.3 g/dL (3.5-5.1); Alkaline Phosphatase 128 U/L (38-126); Aspartate Amino Transferase 207 U/L (14-36); Bilirubin,Total 0.2 mg/dL (0.2-1.3); Blood Urea Nitrogen 22 mg/dL (7-17); Calcium 8.6 mg/dL (8.4-10.2); Carbon Dioxide 25 mmol/L (22-30); Chloride 109 mmol/L (98-107); Estimated CRCL calculation 123 ml/min; Estimated Glomerular Filt Rate > 60; Glucose 201 mg/dL (65-105); Phosphorus 3.7 mg/dL (2.5-4.5); Potassium 3.2 mmol/L (3.4-5.0); Sodium 140 mmol/L (137-145)
[2019-09-17] MEDS: levETIRAcetam 1000MG/NACL100ML 1,000 MG/100 ML BAG 400 MG IVPB ×2 (06:19→17:20)
[2019-09-17 06:50] LABS: Glucose Point of Care 235 (65-105)
[2019-09-17] MEDS: PANTOPRAZOLE SODIUM IV 40 MG VIAL IV PUSH (08:28)
--- NOTE | 2019-09-17 09:34 | WPDINTPN ---
Progress Note: A&P Assessment and Plan (1) Cardiac arrest: Code(s): I46.9 - Cardiac arrest, cause unspecified Status: Acute Assessment and Plan: patient with prolonged cardiac arrest, between 25-30 minutes before ROSC - lactic acid trending down ( lactic on admission was 18.3) - cardiac arrest most likely respiratory event, cardiac event, given her chest x-ray shows significant pulmonary edema bilaterally - patient has been swabbed for COVID-19 which is pending - dopamine switched to Levophed, heart rates are stable - unable to obtain head CT, due to her body habitus. - was not able to place her on hypothermia protocol given her shock and unable to perform a head CT since patient is on Xarelto - continue Keppra given prolonged cardiac arrest and risk of seizures - appreciate cardiology evaluation and recommendation. - echocardiogram has been ordered - troponins have peaked 1.420 - neurological status has been poor, patient not on any sedation, will have Neurology evaluate the patient, EEG has been ordered (2) Acute hypercapnic respiratory failure: Code(s): J96.02 - Acute respiratory failure with hypercapnia Status: Acute Assessment and Plan: acute hypercapnic respiratory failure likely related to pulmonary edema, pneumonia, congestive heart failure, COVID-19 - continue CMV mode of ventilation, - chest x-ray and ABGs reviewed. increased peep to 12, wean FiO2 as tolerated. - continue bronchodilators - patient with possible aspiration according to EMS report, patient placed on vancomycin and aztreonam (3) Metabolic acidosis: Code(s): E87.2 - Acidosis Status: Acute Assessment and Plan: metabolic acidosis from lactic acidosis - lactic acid trending down (4) Type 2 diabetes mellitus with diabetic polyneuropathy: Code(s): E11.42 - Type 2 diabetes mellitus with diabetic polyneuropathy Status: Acute Assessment and Plan: patient is hyperglycemic, continue Accu-Cheks and moderate dose sliding scale - if continues to remain hyperglycemic will start insulin infusion - patient takes glipizide and Januvia at home (5) Paroxysmal atrial fibrillation: Code(s): I48.0 - Paroxysmal atrial fibrillation Status: Acute Assessment and Plan: patient with history of paroxysmal atrial fibrillation, she is on Xarelto at home - will monitor for now, hold amiodarone and Xarelto for now (6) GERD (gastroesophageal reflux disease): Code(s): K21.9 - Gastro-esophageal reflux disease without esophagitis Status: Acute Assessment and Plan: continue PPI (7) Morbid obesity with BMI of 50.0-59.9, adult: Code(s): E66.01 - Morbid (severe) obesity due to excess calories; Z68.43 - Body mass index (BMI) 50.0-59.9, adult Status: Acute Assessment and Plan: chronic (8) Hypercholesterolemia: Code(s): E78.00 - Pure hypercholesterolemia, unspecified Status: Acute Assessment and Plan: patient on atorvastatin at home, will hold for now (9) HTN (hypertension): Qualifiers: Hypertension type: essential hypertension Qualified Code(s): I10 - Essential (primary) hypertension Code(s): I10 - Essential (primary) hypertension Status: Acute Assessment and Plan: patient is in shock, hold all antihypertensive (10) MAXI (obstructive sleep apnea): Code(s): G47.33 - Obstructive sleep apnea (adult) (pediatric) Status: Acute Assessment and Plan: history of obstructive sleep apnea, currently intubated (11) DVT prophylaxis: Code(s): Z29.9 - Encounter for prophylactic measures, unspecified Status: Acute Assessment and Plan: continue Lovenox (12) Suspected 2019 novel coronavirus infection: Code(s): Z20.828 - Contact with and (suspected) exposure to other viral communicable diseases Status: Acute A
--- NOTE | 2019-09-17 09:56 | PM.CNCAR ---
Assessment and Plan Additional Plan 64-year-old black female with: Out of hospital cardiac arrest marked by pulseless electrical activity. There was a relatively long down time before effective hemodynamics were restored. There is no evidence of spontaneous neurological activity at this time. The cardiovascular substrate includes a history of paroxysmal atrial fib which she was apparently being treated with amiodarone and morbid obesity. At this time aggressive supportive care which is already being provided is all there is to recommend. If she does make a neurological recovery then obviously complete evaluation will have to be as discussed. At this point that seems doubtful and prognosis appears to be very poor Tank Mann MD [facility] History of Present Illness History of Present Illness Consult date/time: Date of service: 09/17/19 09:56 Reason For Visit: Cardiac arrest Narrative: This is a 64-year-old black female I am seeing at the request of the hospitalist and the ICU staff because she presented yesterday after a out of hospital arrest marked by PEA. Patient is unknown to me prior to this encounter. She is currently in ICU room 1. Unresponsive and on a mechanical ventilator. Therefore all the history is obtained from reviewing the chart. Cardiac-bravo it sounds like she has a history of paroxysmal atrial fibrillation and receives her care elsewhere. Her regimen for this appears to include typical maintenance dosage of amiodarone, systemic anticoagulation with Xarelto as well as carvedilol, losartan and amlodipine. Apparently this is a lady because of massive obesity lives in proper private home with family but transfers herself from bed to chair using a Debbie lift. Yesterday apparently she was conducting a usual transfer and began to experience are respiratory distress. Apparently then she became unresponsive and 911 was called. Upon their arrival the rhythm was PEA and a resuscitation effort ensued. She was taken to the emergency room here at [facility] and was attended to by the ED staff. The total time from being found unresponsive to restoring circulation was 35-40 minutes at least. The electrocardiogram following islam of circulation showed sinus rhythm with first-degree AV block and a left bundle branch block. EKG now and telemetry shows sinus rhythm with a narrow QRS. The patient is in not sedated she is up targeted and unresponsive and in the ICU on a mechanical ventilator. The laboratory data on the chart did not appear to show any significant disturbances in her electrolytes. She is not significantly anemic. Her chest x-ray showed findings most compatible with pulmonary edema initially now she has significant congestion in the right hemithorax the left hemithorax is relatively clear. She is massively obese has a BMI of just under 60. No other pertinent history is seen on the record. Review of Systems Review of Systems: ROS unobtainable: Yes unobtainable due to medical condition and unobtainable due to mental status PMFSH Past Medical History Medical History (Updated 09/17/19 @ 01:45 by Johanna Crocker PA-C) Arthritis Chronic back pain GERD (gastroesophageal reflux disease) Hard of hearing Hypercholesterolemia Hypertension Iron deficiency anemia Liver masses > 20 masses were noted on previous CT of the abdomen pelvis, concerning for metastatic disease. She is followed by Dr Yossi Diego in [place], and these masses are being monitored conservatively with surveillance imaging. Morbid obesity Obstructive sleep apnea Patient does not use CPAP at nighttime. Opiate use Uses Tramadol daily per patient for arthritis Osteoarthritis Paroxysmal atrial fibrillation Type 2 diabetes mellitus with diabetic polyneuropathy Surgical History Surgical History H/O total hysterectomy 04/17/2011 H/O tubal ligation 1982 Hx of cholecystectomy 06/08/1996
--- NOTE | 2019-09-17 10:56 | PM.IMPN ---
Progress Note: A&P Assessment and Plan (1) Cardiac arrest: Code(s): I46.9 - Cardiac arrest, cause unspecified Status: Acute Assessment and Plan: Precipitating etiology not entirely clear, possible cardiac event. She had a prolonged down time, at least 30-35 minutes before ROSC. Due to her size, she was on able to obtain a head CT, and thus cannot rule out intracranial pathology. Plan for EEG this morning. Patient remains a full code. Kesabara added for seizure prophylaxis. Neurology to evaluate the patient later today. (2) Shock: Code(s): R57.9 - Shock, unspecified Status: Acute Assessment and Plan: Patient required dopamine in the emergency room mostly for bradycardia but has developed hypotension most likely cardiogenic but cannot and exclude septic shock. Currently on Levophed and blood pressure remaining stable. Wean Levophed as tolerated. (3) Suspected 2019 novel coronavirus infection: Code(s): Z20.828 - Contact with and (suspected) exposure to other viral communicable diseases Status: Acute Assessment and Plan: Chest x-ray initially was concerning for pulmonary edema but today's chest x-ray showing more right-sided findings. Would do suspect pulmonary edema. She did have excessive urine output since admission which could explain improved chest x-ray findings. Concern for aspiration as well since vomitus was noted to by EMS. She is also being tested for SARS-CoV-2 by PCR and will continue isolation precautions until results are known. Continue broad-spectrum IV antibiotics. Follow up on cultures. (4) Acute hypercapnic respiratory failure: Code(s): J96.02 - Acute respiratory failure with hypercapnia Status: Acute Assessment and Plan: pH 6.77 with pCO2 of 85 related to prolonged down time. Patient also may have underlying chronic respiratory failure from her untreated sleep apnea. ABG has improved on mechanical ventilation. Appreciate drone software development engineer input. Vent management per drone software development engineer. (5) Lactic acidosis: Code(s): E87.2 - Acidosis Status: Acute Assessment and Plan: Lactic acidosis related to cardiac arrest and prolonged down time. pH 6.7 with lactic acid of 18.3 on admission. Lactic acid has trended down to 2.7 today. Blood cultures pending. Continue broad-spectrum IV antibiotics. (6) Paroxysmal atrial fibrillation: Code(s): I48.0 - Paroxysmal atrial fibrillation Status: Acute Assessment and Plan: She did have periods of bradycardia in the emergency department and was started on dopamine. Heart rate better controlled. Patient remaining in normal sinus rhythm. Amiodarone on hold. Xarelto also on hold. Continue to monitor on telemetry. Appreciate Cardiology input. (7) Bilateral pulmonary infiltrates on chest x-ray: Code(s): R91.8 - Other nonspecific abnormal finding of lung field Status: Acute Assessment and Plan: As above (8) Type 2 diabetes mellitus with diabetic polyneuropathy: Code(s): E11.42 - Type 2 diabetes mellitus with diabetic polyneuropathy Status: Acute Assessment and Plan: A1c 6.7. Continue Accu-Cheks and cover with sliding scale. Continue hypoglycemic protocol. (9) Hypertension: Qualifiers: Hypertension type: essential hypertension Qualified Code(s): I10 - Essential (primary) hypertension Code(s): I10 - Essential (primary) hypertension Status: Acute Assessment and Plan: Antihypertensives are on hold given shock. Currently on Levophed. (10) Obstructive sleep apnea: Code(s): G47.33 - Obstructive sleep apnea (adult) (pediatric) Status: Acute Assessment and Plan: Patient does not use CPAP at home. Currently on mechanical ventilation as detailed above. (11) Morbid obesity with BMI of 50.0-59.9, adult: Code(s): E66.01 - Morbid (severe) obesity due to exce
[2019-09-17] MEDS: NOREPINEPHRINE 8 MG/D5W 250 ML 8 MG/250 ML BAG 13.1 MG IV CONT (11:21)
[2019-09-17 11:52] LABS: Glucose Point of Care 194 (65-105)
[2019-09-17 12:49] LABS: SARS-CoV-2 RNA PCR Negative
[2019-09-17] MEDS: CENTRAL LINE FLUSH 10 ML IV PUSH ×3 (12:53→22:14)
[2019-09-17] MEDS: AZTREONAM 1 GM in DEXTROSE 5% IN WATER 50 ML IVPB ×2 (12:53→22:13)
--- NOTE | 2019-09-17 15:00 | NEURO_ITS ---
TEST: ELECTROENCEPHALOGRAM DIAGNOSIS: COMATOSE STATUS POST CARDIAC ARREST PATIENT NUMBER: [id number] EEG NUMBER: [id number] RECORDING DATE: 09/17/19 CLINICAL HISTORY: The patient is status post cardiac arrest, in a comatose state, on a ventilator without any sedation but on Levophed. On clinical examination the patient does not have any higher cortical functions at all. CONDITION OF RECORDING: Unresponsive EEG DESCRIPTION: There is no cerebral neural activities noted throughout the tracing. There are no eye movements recorded either. There are few electrode artifacts and EKG artifacts. Again there is no cerebral neural activities noted. Nonparoxysmal. Nonfocal. Nonlateralizing. IMPRESSION: Significantly abnormal ominous record due to absence of cerebral neural activity. This EEG is confirmatory for electrocerebral silence. Additional Comment: The EEG was preformed yesterday on 09/17/19 at the bedside in the ICU. It was reviewed remotely yesterday by my partner Dr. Rose. I also reviewed the EEG today. REENA
[2019-09-17 17:26] LABS: Glucose Point of Care 155 (65-105)
--- NOTE | 2019-09-17 18:21 | CONS_ITS ---
DATE OF CONSULTATION: 09/16/2019 HISTORY OF PRESENT ILLNESS: A 64-year-old lady has been admitted to [facility] with the complaint of cardiac arrest with prolonged down time at least 30 to [address] scan could not be done. She was definitely in shock, required the dopamine in the emergency room for the bradycardia, developed hypotension, most likely cardiogenic, but possibility of septic shock could not be ruled out. She was restarted on Levophed and blood pressure remaining stable. There was suspicion about COVID-19 infection. The test has been done. The results are not back. Chest x-ray showed the right-sided findings suggestive of the edema, worse in the aspiration, but she is also being tested for the SARS-CoV-2 by PCR. At present being treated with acute hypercapnic respiratory failure with lactic acidosis. She is also in paroxysmal atrial fibrillation. By history, she is diabetic with polyneuropathy, has high central hypertension, obstructive sleep apnea, morbid obesity. At this stage, she is intubated, unresponsive. Oral G-tube, secured. Heart regular. Lungs with best coarse breath sounds, decreased. Neurologically, she is on unresponsive with no focal neurological deficit. Plan is to continue therapy as such. If necessary, we will obtain the EEG. KERMIT OLMEDO M.D. STATION OPERATOR STATION OPERATOR D I MT: Gilberto
[2019-09-18] VITALS (25 sets, daily range): BP systolic 78–195; BP diastolic 43–91; PULSE 71–109; RESP 20; TEMP 36.1–37.8; O2SAT 89–100
[2019-09-18 00:14] LABS: Glucose Point of Care 195 (65-105)
[2019-09-18 04:40] LABS: Basophils Percent Auto 0.4 % (0.2-1.2); Eosinophils Absolute Auto 0.2 K/mm3 (0-0.3); Hematocrit 33.7 % (37.0-47.0); Hemoglobin 10.8 g/dL (12.0-15.0); Immature Granulocyte Absolute 0.05 K/mm3 (0.00-0.031); Immature Granulocyte Percent A 0.6 % (0-0.5); Lymphocytes Absolute Auto 1.34 K/mm3 (0.9-3.2); Lymphocytes Percent Auto 16.8 % (18.3-44.2); Mean Corpuscular Hemoglobin 27.8 pg (26-34); Mean Corpuscular Volume 86.6 fl (80-100); Monocytes Absolute Auto 0.5 K/mm3 (0.1-0.6); Monocytes Percent Auto 6.5 % (2.6-8.5); Neutrophils Absolute Auto 5.8 K/mm3 (1.3-6.7); Neutrophils Percent Auto 72.7 % (45.5-73.1); Nucleated Red Blood Cells Perc 0.3 % (0.0-0.2); Platelet Count Result 191 k/mm3 (150-375); Red Blood Count 3.89 M/mm3 (4.2-5.4); Red Cell Distribution Width 14.2 % (11.5-14.5)
[2019-09-18 04:50] LABS: Lactic Acid 1.7 mmol/L (0.7-2.1)
[2019-09-18 04:51] LABS: Alveolar/Arterial O2 Gradient 233.5 mmHg; Base Excess ABG -0.6 mEq/l (+/-2.0); Carboxyhemoglobin 0.3 % THb (0-2.0); Device VENTILATOR; Fractional Inspired Oxygen 50 %; HCO3 ABG 22.3 mEq/l (22.0-26.0); Methemoglobin ABG 0.1 %THb (0-1.5); Oxygen Content ABG 15.7 %vol (16.0-22.0); Oxygen Saturation ABG 97.4 % (95.0-100.0); Oxyhemoglobin 95.7 % THb (90.0-100.0); PCO2 ABG 30.8 mmHg (35.0-45.0); PO2 ABG 88.4 mmHg (80.0-100.0); PO2 FiO2 Ratio Arterial Blood 1.77 %; Reduced Hemoglobin 3.9 %THb (0-5.0); Site Drawn ARTLINE; Total Hemoglobin 11.6 g/dL (12.0-18.0); pH ABG 7.477 (7.350-7.450)
[2019-09-18 04:52] LABS: Arterial Blood Gas PEEP 12 cmH2O; Arterial Blood Gas Tidal Volume 450 ml; Arterial Blood Gas Vent Mode CMV; Arterial Blood Gas Ventilator rate 20 /MIN
[2019-09-18 04:55] LABS: Alanine Aminotransferase 239 U/L (4-35); Alkaline Phosphatase 120 U/L (38-126); Aspartate Amino Transferase 230 U/L (14-36); Bilirubin,Total 0.5 mg/dL (0.2-1.3); Blood Urea Nitrogen 21 mg/dL (7-17); Carbon Dioxide 28 mmol/L (22-30); Chloride 112 mmol/L (98-107); Estimated CRCL calculation 123 ml/min; Estimated Glomerular Filt Rate > 60; Glucose 189 mg/dL (65-105); Phosphorus 2.9 mg/dL (2.5-4.5); Potassium 2.9 mmol/L (3.4-5.0); Sodium 144 mmol/L (137-145)
[2019-09-18] MEDS: levETIRAcetam 1000MG/NACL100ML 1,000 MG/100 ML BAG 400 MG IVPB ×2 (05:11→17:20)
[2019-09-18] MEDS: CENTRAL LINE FLUSH 10 ML IV PUSH ×4 (05:12→21:09)
[2019-09-18] MEDS: AZTREONAM 1 GM in DEXTROSE 5% IN WATER 50 ML IVPB ×3 (05:12→21:09)
[2019-09-18] MEDS: NOREPINEPHRINE 8 MG/D5W 250 ML 8 MG/250 ML BAG 18.8 MG IV CONT (06:16)
[2019-09-18] MEDS: PANTOPRAZOLE SODIUM IV 40 MG VIAL IV PUSH (08:37)
--- NOTE | 2019-09-18 09:33 | PM.PNCARD ---
Progress Note: A&P Assessment and Plan (1) Cardiorespiratory arrest: Code(s): I46.9 - Cardiac arrest, cause unspecified Status: Acute Assessment and Plan: Not on any sedation and not responsive to verbal stimuli. Possible Very minimal response to painful stimuli. Prolonged down time likely resulting in significant neurological impairment. (2) Shock: Code(s): R57.9 - Shock, unspecified Status: Acute Assessment and Plan: Wean Levophed. (3) Volume overload: Code(s): E87.70 - Fluid overload, unspecified Status: Acute Assessment and Plan: Furosemide 40 mg IV x1 (4) Encephalopathy: Code(s): G93.40 - Encephalopathy, unspecified Status: Acute Assessment and Plan: Hypoxic. Gas Plant Dispatcher to discuss with family Subjective Date/time seen: 09/18/19 09:33 Interval history: 64yo female who with diabetes and hypertension who was admitted after cardiac arrest. Date of service 09/18/2019: No no response to verbal stimuli. She is not on any sedation. Possible Very minimal response to painful stimuli. Rhythm is stable. Review of Systems Review of Systems: ROS unobtainable: Yes unobtainable due to medical condition and unobtainable due to mental status Cardiovascular: Cardiovascular: Denies leg edema Exam Const: Other: On ventilator support unresponsive HENMT: Mouth: Yes moist mucous membranes Eyes: Sclera: sclerae normal Other: Pupils are fixed Neck: Neck: supple Thyroid: thyroid normal Other: Carotid pulses are grossly intact without bruits JVD cannot be assessed based on her body habitus Resp: Other: Ventilator breath sounds are symmetrical and relatively clear no wheezes no rales Cardio: Rate: regular rate Rhythm: regular rhythm Other: No obvious cardiac murmur PMI is not palpable because of her body habitus GI: Auscultation: normal bowel sounds Skin: General skin exam: normal color Neuro: Other: Unresponsive Objective Data Vital Signs Vital Signs: Vital Signs - 24 hr 09/17/19 10:00 09/17/19 12:00 09/17/19 12:03 Temperature 36.3 C L 36.3 C L Pulse Rate 76 76 76 Respiratory Rate 20 20 Blood Pressure 107/56 L 105/57 L Pulse Oximetry 98 99 98 09/17/19 14:00 09/17/19 14:01 09/17/19 16:00 Temperature 36.5 C Pulse Rate 78 79 79 Respiratory Rate 21 H 20 Blood Pressure 99/52 L 106/53 L Pulse Oximetry 96 96 97 09/17/19 18:00 09/17/19 20:00 09/17/19 20:12 Temperature 36.0 C L Pulse Rate 82 85 85 Respiratory Rate 20 20 Blood Pressure 133/69 125/65 Pulse Oximetry 97 97 100 09/17/19 22:00 09/17/19 23:43 09/18/19 00:00 Temperature 35.8 C L 36.1 C L Pulse Rate 84 84 71 Respiratory Rate 20 20 Blood Pressure 130/65 140/73 Pulse Oximetry 98 98 98 09/18/19 02:00 09/18/19 02:20 09/18/19 04:00 Temperature 36.3 C L 36.6 C Pulse Rate 86 84 87 Respiratory Rate 20 20 Blood Pressure 168/82 H 118/60 Pulse Oximetry 98 98 100 09/18/19 04:53 09/18/19 06:00 09/18/19 06:19 Temperature 36.9 C 37.1 C Pulse Rate 87 91 89 Respiratory Rate 20 20 Blood Pressure 116/58 L 78/43 L Pulse Oximetry 99 99 89 L 09/18/19 06:30 09/18/19 08:00 09/18/19 08:20 Temperature 37.3 C Pulse Rate 92 92 Respiratory Rate 20 Blood Pressure 157/73 H Pulse Oximetry 100 100 Intake/Output Intake/Output: Intake & Output 09/15/19 09/16/19 09/17/19 09/18/19 23:59 23:59 23:59 23:59 Intake Total 1200 1850 240 Output Total 0523 9599 1854 [id number] [phone] Meds/Results Medications: Active Medications Generic Name Dose Route Start Last Admin Trade Name Freq PRN Reason Stop Dose Admin Albuterol 2 puff 09/16/19 20:00 Proventil Hfa INHALATION QIDRT CANDACE Dextrose 12.5 gm 09/17/19 00:46 Dextrose 50% Syringe IV PUSH PRN PRN Hypoglycemia Protocol Enoxaparin Sodium 40 mg 09/17/19 09:00 Lovenox SUB-Q DAILY CANDACE Glucagon 1 mg 09/17/19 00:46
[2019-09-18 09:50] LABS: Vancomycin Trough 15.1 ug/mL (10.0-20.0)
[2019-09-18] MEDS: FUROSEMIDE INJ 40 MG/4 ML VIAL IV PUSH (09:58)
--- NOTE | 2019-09-18 10:05 | PC.NURSE ---
Spoke with Thais from Pharmacy about vanc trough of 15.1, per pharmacist okay to give vancomycin with borderline lab
[2019-09-18 11:58] LABS: Glucose Point of Care 203 (65-105)
[2019-09-18] MEDS: INSULIN ASPART (*BKC) 100 UNITS/ML SUB-Q (11:59)
--- NOTE | 2019-09-18 12:42 | WPDINTPN ---
Progress Note: A&P Assessment and Plan (1) Cardiac arrest: Code(s): I46.9 - Cardiac arrest, cause unspecified Status: Acute Assessment and Plan: patient with prolonged cardiac arrest, between 25-30 minutes before ROSC - lactic acid normalized - cardiac arrest most likely respiratory event, cardiac event, given her chest x-ray shows significant pulmonary edema bilaterally - patient has been swabbed for COVID-19 which is NEGATIVE - patient currently on Levophed, maintain mean arterial pressures greater than 65 mmHg - unable to obtain head CT, due to her body habitus. - was not able to place her on hypothermia protocol as was unable to perform a CT scan of the head, patient was on Xarelto at home, also patient in shock - continue Keppra given prolonged cardiac arrest and risk of seizures - appreciate cardiology evaluation and recommendation. - echocardiogram has been ordered - troponins have peaked 1.420 - neurological status has been poor, patient not on any sedation, appreciate Neurology evaluation recommendations, EEG was done on 09/17/2019, await formal report. (2) Acute hypercapnic respiratory failure: Code(s): J96.02 - Acute respiratory failure with hypercapnia Status: Acute Assessment and Plan: acute hypercapnic respiratory failure likely related to pulmonary edema, pneumonia, congestive heart failure, COVID-19 - continue CMV mode of ventilation, - chest x-ray and ABGs reviewed. increased peep to 12, wean FiO2 as tolerated. - continue bronchodilators - patient with possible aspiration according to EMS report, patient placed on vancomycin and aztreonam (3) Metabolic acidosis: Code(s): E87.2 - Acidosis Status: Acute Assessment and Plan: RESOLVED: metabolic acidosis from lactic acidosis, cardiac arrest, decreased organ perfusion - lactic acid normalized (4) Type 2 diabetes mellitus with diabetic polyneuropathy: Code(s): E11.42 - Type 2 diabetes mellitus with diabetic polyneuropathy Status: Acute Assessment and Plan: patient is hyperglycemic, continue Accu-Cheks and moderate dose sliding scale - patient takes glipizide and Januvia at home (5) Paroxysmal atrial fibrillation: Code(s): I48.0 - Paroxysmal atrial fibrillation Status: Acute Assessment and Plan: patient with history of paroxysmal atrial fibrillation, she is on Xarelto at home - will monitor for now, hold amiodarone and Xarelto for now - currently in sinus rhythm, rate controlled (6) GERD (gastroesophageal reflux disease): Code(s): K21.9 - Gastro-esophageal reflux disease without esophagitis Status: Acute Assessment and Plan: continue PPI (7) Morbid obesity with BMI of 50.0-59.9, adult: Code(s): E66.01 - Morbid (severe) obesity due to excess calories; Z68.43 - Body mass index (BMI) 50.0-59.9, adult Status: Acute Assessment and Plan: chronic (8) Hypercholesterolemia: Code(s): E78.00 - Pure hypercholesterolemia, unspecified Status: Acute Assessment and Plan: patient on atorvastatin at home, will hold for now (9) HTN (hypertension): Qualifiers: Hypertension type: essential hypertension Qualified Code(s): I10 - Essential (primary) hypertension Code(s): I10 - Essential (primary) hypertension Status: Acute Assessment and Plan: patient is in shock, hold all antihypertensive (10) MAXI (obstructive sleep apnea): Code(s): G47.33 - Obstructive sleep apnea (adult) (pediatric) Status: Acute Assessment and Plan: history of obstructive sleep apnea, currently intubated (11) DVT prophylaxis: Code(s): Z29.9 - Encounter for prophylactic measures, unspecified Status: Acute Assessment and Plan: continue Lovenox (12) Suspected 2019 novel coronavirus infection: Code(s): Z20.828 - Contact with and (suspe
[2019-09-18] MEDS: NOREPINEPHRINE 8 MG/D5W 250 ML 8 MG/250 ML BAG 41.3 MG IV CONT (13:45)
[2019-09-18] MEDS: LACTATED RINGERS 1,000 ML 999 ML IV CONT (15:11)
--- NOTE | 2019-09-18 16:13 | PM.IMPN ---
Progress Note: A&P Assessment and Plan (1) Cardiac arrest: Code(s): I46.9 - Cardiac arrest, cause unspecified Status: Acute Assessment and Plan: Precipitating etiology not entirely clear, possible pulmonary, cardiac event verses related to septicemia. She had a prolonged down time, at least 30-35 minutes before ROSC. Due to her size, she was unable to have a head CT, and thus cannot rule out intracranial pathology. EEG this morning showing no brain activity (per report) but final report pending. Patient remains a full code. Tonia added for seizure prophylaxis. Appreciate Neurology and card reader input. Neurology spoke with the family and explained the grim outlook. Family considering withdrawing care. (2) Septicemia: Code(s): A41.9 - Sepsis, unspecified organism Status: Acute Assessment and Plan: Blood cultures positive for gram-positive cocci in chains from both bottles. Source unclear but consider pneumonia. Urinalysis was clear. Continue broad-spectrum IV antibiotics. Follow up on sensitivities. (3) Shock: Code(s): R57.9 - Shock, unspecified Status: Acute Assessment and Plan: Patient required dopamine in the emergency room mostly for bradycardia but has developed hypotension either cardiogenic and/or septic shock. Currently on Levophed but requiring escalating doses. Continue pressor support for blood pressure. (4) Acute hypercapnic respiratory failure: Code(s): J96.02 - Acute respiratory failure with hypercapnia Status: Acute Assessment and Plan: pH 6.77 with pCO2 of 85 related to prolonged down time. Patient also may have underlying chronic respiratory failure from her untreated sleep apnea. ABG has improved on mechanical ventilation. Appreciate card reader input. Vent management per card reader. (5) Lactic acidosis: Code(s): E87.2 - Acidosis Status: Acute Assessment and Plan: Lactic acidosis related to cardiac arrest and prolonged down time. pH 6.7 with lactic acid of 18.3 on admission. Lactic acid has trended down to 1.7 today. Blood cultures positive as above. Continue broad-spectrum IV antibiotics. (6) Paroxysmal atrial fibrillation: Code(s): I48.0 - Paroxysmal atrial fibrillation Status: Acute Assessment and Plan: She did have periods of bradycardia in the emergency department and was started on dopamine. Heart rate better controlled. Patient remaining in normal sinus rhythm. Amiodarone on hold. Xarelto also on hold. Continue to monitor on telemetry. Appreciate Cardiology input. (7) Bilateral pulmonary infiltrates on chest x-ray: Code(s): R91.8 - Other nonspecific abnormal finding of lung field Status: Acute Assessment and Plan: As above (8) Type 2 diabetes mellitus with diabetic polyneuropathy: Code(s): E11.42 - Type 2 diabetes mellitus with diabetic polyneuropathy Status: Acute Assessment and Plan: A1c 6.7. Glucose reviewed on 09/18/19. Glucose elevated at times. Continue Accu-Cheks and cover with sliding scale. Continue hypoglycemic protocol. (9) Hypertension: Qualifiers: Hypertension type: essential hypertension Qualified Code(s): I10 - Essential (primary) hypertension Code(s): I10 - Essential (primary) hypertension Status: Acute Assessment and Plan: Antihypertensives are on hold given shock. Currently on Levophed. (10) Obstructive sleep apnea: Code(s): G47.33 - Obstructive sleep apnea (adult) (pediatric) Status: Acute Assessment and Plan: Patient does not use CPAP at home. Currently on mechanical ventilation as detailed above. (11) Morbid obesity with BMI of 50.0-59.9, adult: Code(s): E66.01 - Morbid (severe) obesity due to excess calories; Z68.43 - Body mass index (BMI) 50.0-59.9, adult Status: Acute Assessment and Plan: BMI 59.7
--- NOTE | 2019-09-18 17:07 | WPDNEUROPN ---
Progress Note: A&P Assessment and Plan (1) Brain injury NEC-deep coma: Code(s): S06.9X6A - Unspecified intracranial injury with loss of consciousness greater than 24 hours without return to pre-existing conscious level with patient surviving, initial encounter Status: Acute (2) Shock: Code(s): R57.9 - Shock, unspecified Status: Acute (3) Bilateral pulmonary infiltrates on chest x-ray: Code(s): R91.8 - Other nonspecific abnormal finding of lung field Status: Acute (4) Hypertension: Qualifiers: Hypertension type: essential hypertension Qualified Code(s): I10 - Essential (primary) hypertension Code(s): I10 - Essential (primary) hypertension Status: Acute (5) Obstructive sleep apnea: Code(s): G47.33 - Obstructive sleep apnea (adult) (pediatric) Status: Acute (6) Lactic acidosis: Code(s): E87.2 - Acidosis Status: Acute (7) Cardiorespiratory arrest: Code(s): I46.9 - Cardiac arrest, cause unspecified Status: Acute (8) Morbid obesity: Code(s): E66.01 - Morbid (severe) obesity due to excess calories Status: Acute (9) Metabolic acidosis: Code(s): E87.2 - Acidosis Status: Acute (10) Acute hypercapnic respiratory failure: Code(s): J96.02 - Acute respiratory failure with hypercapnia Status: Acute (11) Cardiac arrest: Code(s): I46.9 - Cardiac arrest, cause unspecified Status: Acute (12) Morbid obesity with BMI of 50.0-59.9, adult: Code(s): E66.01 - Morbid (severe) obesity due to excess calories; Z68.43 - Body mass index (BMI) 50.0-59.9, adult Status: Acute Additional Plan the patient has on EEG no cerebral neuronal activity and on clinical examination has no sign of higher cortical functions on the only little sign of brainstem function is ataxic shallow breathing which is not unusual scenario I talked to her daughter and also the [id number] of the daughter explained the situation which is gram there at this time not quite sure what they wish to do. I also discussed with the school aide and in my personal opinion the patient should be taken off the ventilatory support as the prognosis is quite dismal Review of Systems Review of Systems: ROS unobtainable: Yes unobtainable due to mental status and other ( patient is deeply comatose) Exam Const: General: comfortable and no acute distress HENMT: General nose exam: Normal nares present Mouth: Yes moist mucous membranes Eyes: Other: complete absence of eye movements in the neutral position and also with the dolls eye maneuver with absent corneal reflex and about 5 millimeter fixed pupil Neck: Neck: supple and no JVD Resp: Other: mild rhonchi Cardio: Rate: regular rate Rhythm: regular rhythm GI: Auscultation: normal bowel sounds ( sluggish bowel sounds) Urinary Catheter: Urinary Catheter: patent and draining Skin: General skin exam: normal color Neuro: Other: deeply comatose state without any evidence of higher cortical function and occasional ataxic short shallow breathing Extrem: General: normal to inspection Psych: Other: deep coma Objective Data Vital Signs Vital Signs: Vital Signs - 24 hr 09/17/19 18:00 09/17/19 20:00 09/17/19 20:12 Temperature 36.0 C L Pulse Rate 82 85 85 Respiratory Rate 20 20 Blood Pressure 133/69 125/65 Pulse Oximetry 97 97 100 09/17/19 22:00 09/17/19 23:43 09/18/19 00:00 Temperature 35.8 C L 36.1 C L Pulse Rate 84 84 71 Respiratory Rate 20 20 Blood Pressure 130/65 140/73 Pulse Oximetry 98 98 98 09/18/19 02:00 09/18/19 02:20 09/18/19 04:00 Temperature 36.3 C L 36.6 C Pulse Rate 86 84 87 Respiratory Rate 20 20 Blood Pressure 168/82 H 118/60 Pulse Oximetry 98 98 100 09/18/19 04:53 09/18/19 06:00 09/18/19 06:19 Temperature 36.9 C 37.1 C Pulse Rate 87 91 89 Respiratory Rate 20 20 Blood Pressure 116/58 L 78/43 L Pulse Oximetry 99 99
[2019-09-18 17:12] LABS: Glucose Point of Care 197 (65-105)
[2019-09-18] MEDS: NOREPINEPHRINE 8 MG/D5W 250 ML 8 MG/250 ML BAG 48.8 MG IV CONT (19:00)
[2019-09-18] MEDS: LACTATED RINGERS 1,000 ML 75 ML IV CONT (19:49)
[2019-09-18] MEDS: VASOPRESSIN INJ 100 UNITS in DEXTROSE 5% 95 ML IV CONT (22:11)
[2019-09-19] VITALS (24 sets, daily range): BP systolic 90–181; BP diastolic 50–88; PULSE 85–104; RESP 20; TEMP 35.7–37.3; O2SAT 98–100
[2019-09-19 00:01] LABS: Glucose Point of Care 223 (65-105)
[2019-09-19] MEDS: INSULIN ASPART (*BKC) 100 UNITS/ML SUB-Q ×4 (00:02→23:59)
[2019-09-19] MEDS: NOREPINEPHRINE 8 MG/D5W 250 ML 8 MG/250 ML BAG 37.5 MG IV CONT (01:00)
[2019-09-19 04:20] LABS: Alveolar/Arterial O2 Gradient 138.5 mmHg; Base Excess ABG -0.9 mEq/l (+/-2.0); Carboxyhemoglobin 0.1 % THb (0-2.0); Fractional Inspired Oxygen 40 %; HCO3 ABG 22.7 mEq/l (22.0-26.0); Methemoglobin ABG 0.2 %THb (0-1.5); Oxygen Content ABG 16.5 %vol (16.0-22.0); Oxygen Saturation ABG 98.1 % (95.0-100.0); Oxyhemoglobin 97.1 % THb (90.0-100.0); PCO2 ABG 34.1 mmHg (35.0-45.0); PO2 ABG 107.5 mmHg (80.0-100.0); PO2 FiO2 Ratio Arterial Blood 2.69 %; Reduced Hemoglobin 2.6 %THb (0-5.0); pH ABG 7.441 (7.350-7.450)
[2019-09-19 04:21] LABS: Device VENTILATOR; Site Drawn ARTLINE
[2019-09-19 04:22] LABS: Arterial Blood Gas PEEP 12 cmH2O; Arterial Blood Gas Vent Mode CMV; Arterial Blood Gas Ventilator rate 20 /MIN
[2019-09-19 04:23] LABS: Arterial Blood Gas Tidal Volume 450 ml
[2019-09-19 05:44] LABS: Glucose Point of Care 176 (65-105)
[2019-09-19] MEDS: AZTREONAM 1 GM in DEXTROSE 5% IN WATER 50 ML IVPB ×3 (05:51→21:45)
[2019-09-19] MEDS: CENTRAL LINE FLUSH 10 ML IV PUSH ×4 (05:54→21:45)
[2019-09-19] MEDS: levETIRAcetam 1000MG/NACL100ML 1,000 MG/100 ML BAG 400 MG IVPB ×2 (05:54→17:32)
[2019-09-19 05:55] LABS: Basophils Percent Auto 0.5 % (0.2-1.2); Eosinophils Absolute Auto 0.3 K/mm3 (0-0.3); Eosinophils Percent Auto 3.4 % (0-4.4); Hematocrit 35.4 % (37.0-47.0); Immature Granulocyte Absolute 0.07 K/mm3 (0.00-0.031); Immature Granulocyte Percent A 0.8 % (0-0.5); Lymphocytes Absolute Auto 1.43 K/mm3 (0.9-3.2); Lymphocytes Percent Auto 16.7 % (18.3-44.2); Mean Corpuscular HGB Conc 31.1 g/dl (32-36); Mean Corpuscular Volume 90.1 fl (80-100); Mean Platelet Volume 10.6 fl (7.4-10.4); Monocytes Absolute Auto 0.7 K/mm3 (0.1-0.6); Monocytes Percent Auto 8.1 % (2.6-8.5); Neutrophils Percent Auto 70.5 % (45.5-73.1); Platelet Count Result 181 k/mm3 (150-375); Red Blood Count 3.93 M/mm3 (4.2-5.4); Red Cell Distribution Width 14.7 % (11.5-14.5); White Blood Count 8.6 K/mm3 (4.5-10.0)
[2019-09-19 06:09] LABS: Lactic Acid 1.9 mmol/L (0.7-2.1)
[2019-09-19 06:19] LABS: Alanine Aminotransferase 230 U/L (4-35); Albumin Level 2.8 g/dL (3.5-5.1); Alkaline Phosphatase 136 U/L (38-126); Aspartate Amino Transferase 164 U/L (14-36); Bilirubin,Total 0.9 mg/dL (0.2-1.3); Blood Urea Nitrogen 18 mg/dL (7-17); Calcium 9.3 mg/dL (8.4-10.2); Carbon Dioxide 26 mmol/L (22-30); Chloride 117 mmol/L (98-107); Estimated CRCL calculation 111 ml/min; Estimated Glomerular Filt Rate > 60; Glucose 221 mg/dL (65-105); Phosphorus 2.8 mg/dL (2.5-4.5); Potassium 2.8 mmol/L (3.4-5.0); Sodium 146 mmol/L (137-145)
[2019-09-19] MEDS: POTASSIUM CHLORIDE 20 MEQ PACKET (FOR LIQUID) 40 MEQ PO (06:49)
[2019-09-19] MEDS: PANTOPRAZOLE SODIUM IV 40 MG VIAL IV PUSH (08:08)
[2019-09-19] MEDS: NOREPINEPHRINE 8 MG/D5W 250 ML 8 MG/250 ML BAG 33.8 MG IV CONT (08:12)
--- NOTE | 2019-09-19 09:27 | PM.PNCARD ---
Progress Note: A&P Assessment and Plan (1) Cardiorespiratory arrest: Code(s): I46.9 - Cardiac arrest, cause unspecified Status: Acute Assessment and Plan: Not on any sedation and not responsive to verbal stimuli. Prolonged down time likely resulting in significant neurological impairment. (2) Shock: Code(s): R57.9 - Shock, unspecified Status: Acute Assessment and Plan: Adjust pressors as needed (3) Volume overload: Code(s): E87.70 - Fluid overload, unspecified Status: Acute Assessment and Plan: Much improved chest x-ray today (4) Encephalopathy: Code(s): G93.40 - Encephalopathy, unspecified Status: Acute Assessment and Plan: Hypoxic. 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 and IV times 1 each Subjective Date/time seen: 09/19/19 09:27 Interval history: 64yo female who with diabetes and hypertension who was admitted after cardiac arrest. Date of service 09/18/2019: No no response to verbal stimuli. She is not on any sedation. Possible Very minimal response to painful stimuli. Rhythm is stable. Review of Systems Review of Systems: ROS unobtainable: Yes unobtainable due to medical condition and unobtainable due to mental status Cardiovascular: Cardiovascular: Denies leg edema Exam Const: Other: On ventilator support unresponsive HENMT: Mouth: Yes moist mucous membranes Eyes: Sclera: sclerae normal Other: Pupils are fixed Neck: Neck: supple Thyroid: thyroid normal Other: Carotid pulses are grossly intact without bruits JVD cannot be assessed based on her body habitus Resp: Other: Ventilator breath sounds are symmetrical and relatively clear no wheezes no rales Cardio: Rate: regular rate Rhythm: regular rhythm Other: No obvious cardiac murmur PMI is not palpable because of her body habitus GI: Auscultation: normal bowel sounds Skin: General skin exam: normal color Neuro: Other: Unresponsive Objective Data Vital Signs Vital Signs: Vital Signs - 24 hr 09/18/19 10:00 09/18/19 12:00 09/18/19 12:20 Temperature 37.4 C 37.5 C Pulse Rate 101 H 97 99 Respiratory Rate 20 20 Blood Pressure 146/73 H 95/57 L Pulse Oximetry 99 98 100 05/16/20 13:48 09/18/19 15:30 09/18/19 16:00 Temperature 37.7 C H 37.7 C H Pulse Rate 98 102 H 102 H Respiratory Rate 20 20 Blood Pressure 123/70 136/67 Pulse Oximetry 98 100 09/18/19 17:09 09/18/19 18:00 09/18/19 19:39 Temperature 37.7 C H Pulse Rate 100 102 H 102 H Respiratory Rate 20 Blood Pressure 117/61 Pulse Oximetry 98 100 100 09/18/19 20:00 09/18/19 20:15 09/18/19 22:00 Temperature 37.8 C H 37.8 C H 37.2 C Pulse Rate 109 H 103 H 100 Respiratory Rate 20 20 20 Blood Pressure 195/91 H 109/57 L 135/65 Pulse Oximetry 98 99 100 09/18/19 22:07 09/18/19 22:11 09/18/19 23:30 Temperature Pulse Rate 93 Respiratory Rate Blood Pressure 96/53 L 93/50 L Pulse Oximetry 100 09/19/19 00:00 09/19/19 02:00 09/19/19 02:28 Temperature 37.0 C 36.7 C Pulse Rate 94 91 90 Respiratory Rate 20 20 Blood Pressure 136/69 119/63 Pulse Oximetry 100 100 100 09/19/19 03:14 09/19/19 04:00 09/19/19 04:15 Temperature 36.1 C L 35.9 C L Pulse Rate 91 89 94 Respiratory Rate 20 20 Blood Pressure 96/57 L 118/65 Pulse Oximetry 100 100 100 09/19/19 06:00 09/19/19 07:32 09/19/19 08:00 Temperature 35.8 C L 35.7 C L Pulse Rate 88 87 87 Respiratory Rate 20 20 Blood Pressure 159/82 H 134/69 Pulse Oximetry 100 100 09/19/19 08:58 Temperature Pulse Rate 85 Respiratory Rate Blood Pressure Pulse Oximetry 100 Intake/Output Intake/Output: Intake & Output 09/16/19 09/17/19 09/18/19 09/19/19 23:59 23:59 23:59 23:59 Intake Total 1200 1850 3040 740 Output Total 3150 4028 5158 2153 [facility], [place] -1950 -2175 -2110 -1410
[2019-09-19] MEDS: LACTATED RINGERS 1,000 ML 75 ML IV CONT (09:54)
--- NOTE | 2019-09-19 10:41 | PM.IMPN ---
Progress Note: A&P Assessment and Plan (1) Cardiac arrest: Code(s): I46.9 - Cardiac arrest, cause unspecified Status: Acute Assessment and Plan: Precipitating etiology not entirely clear, possible pulmonary, cardiac event verses related to septicemia. She had a prolonged down time, at least 30-35 minutes before ROSC. Due to her size, she was unable to have a head CT, and thus cannot rule out intracranial pathology. EEG on 09/17 showing no brain activity (per report) but final report pending. Patient remains a full code. Tonia added for seizure prophylaxis. Appreciate Neurology and manager mutual fund input. Neurology and manager mutual fund have spoken with the family and explained the grim outlook. Family considering withdrawing care. Discussed with manager mutual fund. (2) Septicemia: Code(s): A41.9 - Sepsis, unspecified organism Status: Acute Assessment and Plan: Blood cultures positive for gram-positive cocci in chains from both bottles. Source unclear but consider pneumonia. Urinalysis was clear. Continue broad-spectrum IV antibiotics. Follow up on sensitivities. (3) Shock: Code(s): R57.9 - Shock, unspecified Status: Acute Assessment and Plan: Patient required dopamine in the emergency room mostly for bradycardia but has developed hypotension either cardiogenic and/or septic shock. 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 Continue pressor support to maintain blood pressure. (4) Acute hypercapnic respiratory failure: Code(s): J96.02 - Acute respiratory failure with hypercapnia Status: Acute Assessment and Plan: pH 6.77 with pCO2 of 85 related to prolonged down time. Patient also may have underlying chronic respiratory failure from her untreated sleep apnea. ABG has improved on mechanical ventilation. Appreciate manager mutual fund input. Vent management per manager mutual fund. (5) Lactic acidosis: Code(s): E87.2 - Acidosis Status: Acute Assessment and Plan: Lactic acidosis related to cardiac arrest and prolonged down time. pH 6.7 with lactic acid of 18.3 on admission. Lactic acid has trended down to 1.7 today. Blood cultures positive as above. Continue broad-spectrum IV antibiotics. (6) Paroxysmal atrial fibrillation: Code(s): I48.0 - Paroxysmal atrial fibrillation Status: Acute Assessment and Plan: She did have periods of bradycardia in the emergency department and was started on dopamine. Heart rate controlled. Patient remaining in normal sinus rhythm. Amiodarone on hold. Xarelto also on hold. Continue to monitor on telemetry. Appreciate Cardiology input. (7) Bilateral pulmonary infiltrates on chest x-ray: Code(s): R91.8 - Other nonspecific abnormal finding of lung field Status: Acute Assessment and Plan: As above (8) Type 2 diabetes mellitus with diabetic polyneuropathy: Code(s): E11.42 - Type 2 diabetes mellitus with diabetic polyneuropathy Status: Acute Assessment and Plan: A1c 6.7. Glucose reviewed on 09/19/19. Glucose still elevated at times. Continue Accu-Cheks and cover with sliding scale. Continue hypoglycemic protocol. (9) Hypertension: Qualifiers: Hypertension type: essential hypertension Qualified Code(s): I10 - Essential (primary) hypertension Code(s): I10 - Essential (primary) hypertension Status: Acute Assessment and Plan: Antihypertensives are on hold given shock. Currently on Levophed. (10) Obstructive sleep apnea: Code(s): G47.33 - Obstructive sleep apnea (adult) (pediatric) Status: Acute Assessment and Plan: Patient does not use CPAP at home. Currently on mechanical ventilation as detailed above. (11) Morbid obesity with BMI of 50.0-59.9, adult: Code(s): E66.01 - Morbid (severe) obesity due to excess calories; Z68.43 - Body mass index (BMI) 50.0-59.9, adult Status: Acute As
--- NOTE | 2019-09-19 10:45 | WPDINTPN ---
Progress Note: A&P Assessment and Plan (1) Shock: Code(s): R57.9 - Shock, unspecified Status: Acute Assessment and Plan: patient presented with cardiac arrest, now with shock, cardiogenic, septic, hypovolemia, possible aspiration - blood cultures growing Gram positive cocci in chains 2/2 bottles, - continue vancomycin and aztreonam - continue Levophed and vasopressin at this time to maintain mean arterial pressures greater than 65 mmHg (2) Cardiac arrest: Code(s): I46.9 - Cardiac arrest, cause unspecified Status: Acute Assessment and Plan: patient with prolonged cardiac arrest, between 25-30 minutes before ROSC - lactic acid normalized - cardiac arrest most likely respiratory event, cardiac event, given her chest x-ray shows significant pulmonary edema bilaterally - patient has been swabbed for COVID-19 which is NEGATIVE - unable to obtain head CT, due to her body habitus. - was not able to place her on hypothermia protocol as was unable to perform a CT scan of the head, patient was on Xarelto at home, also patient in shock - continue Keppra given prolonged cardiac arrest and risk of seizures - appreciate cardiology evaluation and recommendation. - troponins have peaked 1.420 - neurological status has been poor, patient not on any sedation, appreciate Neurology evaluation recommendations, - EEG was done on 09/17/2019: no cerebral neuronal activity (3) Acute hypercapnic respiratory failure: Code(s): J96.02 - Acute respiratory failure with hypercapnia Status: Acute Assessment and Plan: acute hypercapnic respiratory failure likely related to pulmonary edema, pneumonia, congestive heart failure, COVID-19 - continue CMV mode of ventilation, - chest x-ray and ABGs reviewed. increased peep to 12, wean FiO2 as tolerated. - continue bronchodilators (4) Metabolic acidosis: Code(s): E87.2 - Acidosis Status: Acute Assessment and Plan: RESOLVED: metabolic acidosis from lactic acidosis, cardiac arrest, decreased organ perfusion - lactic acid normalized (5) Type 2 diabetes mellitus with diabetic polyneuropathy: Code(s): E11.42 - Type 2 diabetes mellitus with diabetic polyneuropathy Status: Acute Assessment and Plan: patient is hyperglycemic, continue Accu-Cheks and moderate dose sliding scale - patient takes glipizide and Januvia at home (6) Paroxysmal atrial fibrillation: Code(s): I48.0 - Paroxysmal atrial fibrillation Status: Acute Assessment and Plan: patient with history of paroxysmal atrial fibrillation, she is on Xarelto at home - will monitor for now, hold amiodarone and Xarelto for now - currently in sinus rhythm, rate controlled (7) GERD (gastroesophageal reflux disease): Code(s): K21.9 - Gastro-esophageal reflux disease without esophagitis Status: Acute Assessment and Plan: continue PPI (8) Morbid obesity with BMI of 50.0-59.9, adult: Code(s): E66.01 - Morbid (severe) obesity due to excess calories; Z68.43 - Body mass index (BMI) 50.0-59.9, adult Status: Acute Assessment and Plan: chronic (9) Hypercholesterolemia: Code(s): E78.00 - Pure hypercholesterolemia, unspecified Status: Acute Assessment and Plan: patient on atorvastatin at home, will hold for now (10) HTN (hypertension): Qualifiers: Hypertension type: essential hypertension Qualified Code(s): I10 - Essential (primary) hypertension Code(s): I10 - Essential (primary) hypertension Status: Acute Assessment and Plan: patient is in shock, hold all antihypertensive (11) MAXI (obstructive sleep apnea): Code(s): G47.33 - Obstructive sleep apnea (adult) (pediatric) Status: Acute Assessment and Plan: history of obstructive sleep apnea, currently intubated (12) DVT prophylaxis: Code(s): Z29.9
[2019-09-19 12:02] LABS: Glucose Point of Care 214 (65-105)
[2019-09-19] MEDS: NOREPINEPHRINE 8 MG/D5W 250 ML 8 MG/250 ML BAG 41.3 MG IV CONT ×2 (15:29→21:44)
[2019-09-19 17:45] LABS: Glucose Point of Care 220 (65-105)
--- NOTE | 2019-09-19 18:23 | WPDNEUROPN ---
Progress Note: A&P Assessment and Plan (1) Brain injury NEC-deep coma: Code(s): S06.9X6A - Unspecified intracranial injury with loss of consciousness greater than 24 hours without return to pre-existing conscious level with patient surviving, initial encounter Status: Acute (2) Cardiorespiratory arrest: Code(s): I46.9 - Cardiac arrest, cause unspecified Status: Acute (3) Morbid obesity: Code(s): E66.01 - Morbid (severe) obesity due to excess calories Status: Acute Additional Plan there is nothing further to add at this point management needs to be continued as the family has not decided what they wishes us to do Review of Systems Review of Systems: ROS unobtainable: Yes unobtainable due to mental status Exam Const: General: comfortable and no acute distress HENMT: General nose exam: Normal nares present Mouth: Yes moist mucous membranes Eyes: Other: the pupil are fixed and dilated no corneal reflex no pupillary responses and dolls eye maneuver is positive Neck: Neck: supple and no JVD Resp: Auscultation: clear to auscultation bilaterally Other: no respiratory effort Cardio: Rate: regular rate Rhythm: regular rhythm GI: Auscultation: normal bowel sounds Urinary Catheter: Urinary Catheter: patent and draining Skin: General skin exam: normal color Neuro: Other: deeply comatose without any higher cortical function or brainstem function no effort for spontaneous Prieb Extrem: General: normal to inspection Psych: Other: deep coma Objective Data Vital Signs Vital Signs: Vital Signs - 24 hr 09/18/19 19:39 09/18/19 20:00 09/18/19 20:15 Temperature 37.8 C H 37.8 C H Pulse Rate 102 H 109 H 103 H Respiratory Rate 20 20 Blood Pressure 195/91 H 109/57 L Pulse Oximetry 100 98 99 09/18/19 22:00 09/18/19 22:07 09/18/19 22:11 Temperature 37.2 C Pulse Rate 100 Respiratory Rate 20 Blood Pressure 135/65 96/53 L 93/50 L Pulse Oximetry 100 09/18/19 23:30 09/19/19 00:00 09/19/19 02:00 Temperature 37.0 C 36.7 C Pulse Rate 93 94 91 Respiratory Rate 20 20 Blood Pressure 136/69 119/63 Pulse Oximetry 100 100 100 09/19/19 02:28 09/19/19 03:14 09/19/19 04:00 Temperature 36.1 C L 35.9 C L Pulse Rate 90 91 89 Respiratory Rate 20 20 Blood Pressure 96/57 L 118/65 Pulse Oximetry 100 100 100 09/19/19 04:15 09/19/19 06:00 09/19/19 07:32 Temperature 35.8 C L 35.7 C L Pulse Rate 94 88 87 Respiratory Rate 20 20 Blood Pressure 159/82 H 134/69 Pulse Oximetry 100 100 100 09/19/19 08:00 09/19/19 08:58 09/19/19 10:00 Temperature 35.9 C L Pulse Rate 87 85 88 Respiratory Rate 20 Blood Pressure 90/50 L Pulse Oximetry 100 100 09/19/19 11:55 09/19/19 12:00 09/19/19 12:12 Temperature 36.1 C L Pulse Rate 92 92 93 Respiratory Rate 20 Blood Pressure 106/55 L Pulse Oximetry 100 100 09/19/19 13:44 09/19/19 14:45 09/19/19 15:35 Temperature 36.4 C L 36.7 C Pulse Rate 97 94 100 Respiratory Rate 20 20 Blood Pressure 101/60 141/76 H Pulse Oximetry 100 100 100 09/19/19 16:00 09/19/19 16:26 09/19/19 17:42 Temperature 37.1 C Pulse Rate 100 101 H 103 H Respiratory Rate 20 Blood Pressure 149/80 H Pulse Oximetry 100 100 Intake/Output Intake/Output: Intake & Output 09/16/19 09/17/19 09/18/19 09/19/19 23:59 23:59 23:59 23:59 Intake Total 1200 1850 3040 2740 Output Total 3150 4025 5150 2850 Balance -1950 -2175 -2110 -110 Meds/Results Medications: Active Medications Generic Name Dose Route Start Last Admin Trade Name Freq PRN Reason Stop Dose Admin Albuterol 2 puff 09/16/19 20:00 Proventil Hfa INHALATION QIDRT [facility] Dextrose 12.5 gm 09/17/19 00:46 Dextrose 50% Syringe IV PUSH PRN PRN Hypoglycemia Protocol Enoxaparin Sodium 40 mg 09/17/19 09:00 Lovenox SUB-Q DAILY [facility] Glucagon 1 mg 09/17/19 00:46 Glucagon For Inj IM PRN PRN Hypoglycemia
[2019-09-19 23:59] LABS: Glucose Point of Care 266 (65-105)
[2019-09-20] VITALS (24 sets, daily range): BP systolic 119–171; BP diastolic 61–79; PULSE 91–103; RESP 20; TEMP 36.6–37.6; O2SAT 98–100
--- NOTE | 2019-09-20 | ECHO_ITS ---
Patient Info Name: Macey Reyes Age: 64 years : 1955 Gender: Female Ht: 69 in Wt: 417 lbs BSA: 3.15 m2 HR: 84 bpm BP: 124 / 75 mmHg Heart Rhythm: Sinus Rhythm Technical Quality: Fair Exam Date: 09/20/2019 11:28 AM Exam Location: [facility] Patient Status: Inpatient Admit Date: 09/16/2019 Staff Ordering Physician: Douglas Hairston MD Tool And Die Supervisor: Qi Solorio RDCS Attending Provider: Calvin Garcia MD Referring Physician: Yovanny MCCABE; Exam Type: CA echo doppler color flow Study Info Indications - s/p cardiac arrest Complete two-dimensional, color flow and Doppler transthoracic echocardiogram is performed. Summary 1. Left ventricular chamber dimension is mildly enlarged. 2. Left ventricular systolic function is normal, estimated at 60-65%. 3. There is mildly increased left ventricular wall thickness. 4. The left ventricular diastolic function is grade I diastolic dysfunction. 5. The basal inferior wall is hypokinetic. 6. All other marvin appear normal. 7. Left atrial chamber dimension is mildly enlarged. 8. There is mild mitral valve regurgitation. 9. There is no significant tricuspid valve stenosis. 10. There is mild tricuspid valve regurgitation. 11. Moderate pulmonary hypertension, estimated pulmonary arterial systolic pressure is 48 mmHg. 12. There is mild pulmonic regurgitation. Left Ventricle Left ventricular chamber dimension is mildly enlarged. Left ventricular systolic function is normal, estimated at 60-65%. There is mildly increased left ventricular wall thickness. The left ventricular diastolic function is grade I diastolic dysfunction. The basal inferior wall is hypokinetic. All other marvin appear normal. Right Ventricle Right ventricular chamber dimension is normal. Right ventricular systolic function is normal. Left Atria Left atrial chamber dimension is mildly enlarged. Right Atria Right atrial chamber dimension is normal. Atrial Septum Intact interatrial septum visualized by color flow imaging. Aortic Valve The aortic valve is trileaflet. There is mild aortic valve sclerosis. There is no aortic valve stenosis. There is trace aortic valve regurgitation. Pulmonic Valve The pulmonic valve is normal. There is no pulmonic valve stenosis. There is mild pulmonic regurgitation. Mitral Valve The mitral valve has thickened leaflets. There is no mitral valve stenosis. There is mild mitral valve regurgitation. Tricuspid Valve The tricuspid valve leaflets are normal. There is no significant tricuspid valve stenosis. There is mild tricuspid valve regurgitation. Moderate pulmonary hypertension, estimated pulmonary arterial systolic pressure is 48 mmHg. Pericardium/Pleural The pericardium appears normal. There is no pericardial effusion. Inferior Vena Cava Dilated inferior vena cava with <50% collapse upon inspiration consistent with elevated right atrial pressure, 10 mmHg. Aorta The aortic root size at the sinus of Valsalva is normal. The prox ascending aorta size is normal. Left Ventricular Outflow Tract Name Value Normal LVOT 2D LVOT Diameter 2.0 cm LVOT Doppler
[2019-09-20] MEDS: LACTATED RINGERS 1,000 ML 75 ML IV CONT ×2 (00:15→11:12)
[2019-09-20 04:43] LABS: Alveolar/Arterial O2 Gradient 147.2 mmHg; Base Excess ABG -2.5 mEq/l (+/-2.0); Carboxyhemoglobin 0.3 % THb (0-2.0); Fractional Inspired Oxygen 40 %; HCO3 ABG 20.8 mEq/l (22.0-26.0); Methemoglobin ABG 0.4 %THb (0-1.5); Oxygen Content ABG 15.4 %vol (16.0-22.0); Oxygen Saturation ABG 97.9 % (95.0-100.0); Oxyhemoglobin 96.3 % THb (90.0-100.0); PCO2 ABG 31.4 mmHg (35.0-45.0); PO2 ABG 101.9 mmHg (80.0-100.0); PO2 FiO2 Ratio Arterial Blood 2.55 %; Total Hemoglobin 11.3 g/dL (12.0-18.0)
[2019-09-20 04:44] LABS: Arterial Blood Gas Vent Mode CMV; Arterial Blood Gas Ventilator rate 20 /MIN; Device VENTILATOR; Site Drawn ARTLINE
[2019-09-20 04:45] LABS: Arterial Blood Gas PEEP 12 cmH2O; Arterial Blood Gas Tidal Volume 450 ml
[2019-09-20] MEDS: NOREPINEPHRINE 8 MG/D5W 250 ML 8 MG/250 ML BAG 31.9 MG IV CONT (04:55)
[2019-09-20 05:07] LABS: Basophils Percent Auto 0.2 % (0.2-1.2); Eosinophils Absolute Auto 0.3 K/mm3 (0-0.3); Eosinophils Percent Auto 3.9 % (0-4.4); Hematocrit 33.7 % (37.0-47.0); Hemoglobin 10.4 g/dL (12.0-15.0); Immature Granulocyte Absolute 0.05 K/mm3 (0.00-0.031); Immature Granulocyte Percent A 0.6 % (0-0.5); Lymphocytes Absolute Auto 1.44 K/mm3 (0.9-3.2); Lymphocytes Percent Auto 17.4 % (18.3-44.2); Mean Corpuscular HGB Conc 30.9 g/dl (32-36); Mean Corpuscular Hemoglobin 27.2 pg (26-34); Mean Corpuscular Volume 88.2 fl (80-100); Mean Platelet Volume 9.9 fl (7.4-10.4); Monocytes Absolute Auto 0.7 K/mm3 (0.1-0.6); Monocytes Percent Auto 8.8 % (2.6-8.5); Neutrophils Absolute Auto 5.7 K/mm3 (1.3-6.7); Neutrophils Percent Auto 69.1 % (45.5-73.1); Platelet Count Result 160 k/mm3 (150-375); Red Blood Count 3.82 M/mm3 (4.2-5.4); Red Cell Distribution Width 14.6 % (11.5-14.5); White Blood Count 8.3 K/mm3 (4.5-10.0)
[2019-09-20 05:17] LABS: Lactic Acid 1.7 mmol/L (0.7-2.1)
[2019-09-20 05:18] LABS: Alanine Aminotransferase 166 U/L (4-35); Albumin Level 2.6 g/dL (3.5-5.1); Alkaline Phosphatase 149 U/L (38-126); Aspartate Amino Transferase 100 U/L (14-36); Bilirubin,Total 0.9 mg/dL (0.2-1.3); Blood Urea Nitrogen 17 mg/dL (7-17); Calcium 9.1 mg/dL (8.4-10.2); Carbon Dioxide 24 mmol/L (22-30); Chloride 116 mmol/L (98-107); Estimated CRCL calculation 100 ml/min; Estimated Glomerular Filt Rate > 60; Glucose 266 mg/dL (65-105); Magnesium 1.9 mg/dL (1.6-2.3); Phosphorus 2.9 mg/dL (2.5-4.5); Potassium 3.2 mmol/L (3.4-5.0); Sodium 143 mmol/L (137-145)
[2019-09-20] MEDS: INSULIN ASPART (*BKC) 100 UNITS/ML SUB-Q ×4 (05:56→23:34)
[2019-09-20] MEDS: levETIRAcetam 1000MG/NACL100ML 1,000 MG/100 ML BAG 400 MG IVPB ×2 (05:59→16:36)
[2019-09-20] MEDS: CENTRAL LINE FLUSH 10 ML IV PUSH ×4 (05:59→21:59)
[2019-09-20] MEDS: AZTREONAM 1 GM in DEXTROSE 5% IN WATER 50 ML IVPB ×3 (06:09→21:59)
[2019-09-20] MEDS: INSULIN GLARGINE (*BKC) 100 UNITS/ML 7 UNITS SUB-Q (07:55)
[2019-09-20] MEDS: PANTOPRAZOLE SODIUM IV 40 MG VIAL IV PUSH (07:56)
[2019-09-20 08:20] LABS: Glucose Point of Care 236 (65-105)
--- NOTE | 2019-09-20 08:21 | WPDINTPN ---
Progress Note: A&P Assessment and Plan (1) Shock: Code(s): R57.9 - Shock, unspecified Status: Acute Assessment and Plan: patient presented with cardiac arrest, now with shock, cardiogenic, septic, hypovolemia, possible aspiration - blood cultures growing Gram positive cocci in chains 2/2 bottles, identification pending - continue vancomycin and aztreonam - continue Levophed and vasopressin at this time to maintain mean arterial pressures greater than 65 mmHg (2) Cardiac arrest: Code(s): I46.9 - Cardiac arrest, cause unspecified Status: Acute Assessment and Plan: patient with prolonged cardiac arrest, between 25-30 minutes before ROSC - lactic acid normalized - cardiac arrest most likely respiratory event, cardiac event, given her chest x-ray shows significant pulmonary edema bilaterally - patient has been swabbed for COVID-19 which is NEGATIVE - unable to obtain head CT, due to her body habitus. - continue Keppra given prolonged cardiac arrest and risk of seizures - appreciate cardiology evaluation and recommendation. - neurological status has been poor, patient not on any sedation since admission, appreciate Neurology evaluation recommendations, - EEG was done on 09/17/2019: no cerebral neuronal activity (3) Acute hypercapnic respiratory failure: Code(s): J96.02 - Acute respiratory failure with hypercapnia Status: Acute Assessment and Plan: acute hypercapnic respiratory failure likely related to pulmonary edema, pneumonia, congestive heart failure, COVID-19 - continue CMV mode of ventilation, - chest x-ray and ABGs reviewed. increased peep to 12, wean FiO2 as tolerated. - continue bronchodilators (4) Metabolic acidosis: Code(s): E87.2 - Acidosis Status: Acute Assessment and Plan: RESOLVED: metabolic acidosis from lactic acidosis, cardiac arrest, decreased organ perfusion - lactic acid normalized (5) Type 2 diabetes mellitus with diabetic polyneuropathy: Code(s): E11.42 - Type 2 diabetes mellitus with diabetic polyneuropathy Status: Acute Assessment and Plan: patient is hyperglycemic, continue Accu-Cheks and moderate dose sliding scale - added Lantus - patient takes glipizide and Januvia at home (6) Paroxysmal atrial fibrillation: Code(s): I48.0 - Paroxysmal atrial fibrillation Status: Acute Assessment and Plan: patient with history of paroxysmal atrial fibrillation, she is on Xarelto at home - will monitor for now, hold amiodarone and Xarelto for now - currently in sinus rhythm, rate controlled (7) GERD (gastroesophageal reflux disease): Code(s): K21.9 - Gastro-esophageal reflux disease without esophagitis Status: Acute Assessment and Plan: continue PPI (8) Morbid obesity with BMI of 50.0-59.9, adult: Code(s): E66.01 - Morbid (severe) obesity due to excess calories; Z68.43 - Body mass index (BMI) 50.0-59.9, adult Status: Acute Assessment and Plan: chronic (9) Hypercholesterolemia: Code(s): E78.00 - Pure hypercholesterolemia, unspecified Status: Acute Assessment and Plan: patient on atorvastatin at home, will hold for now (10) HTN (hypertension): Qualifiers: Hypertension type: essential hypertension Qualified Code(s): I10 - Essential (primary) hypertension Code(s): I10 - Essential (primary) hypertension Status: Acute Assessment and Plan: patient is in shock, hold all antihypertensive (11) MAXI (obstructive sleep apnea): Code(s): G47.33 - Obstructive sleep apnea (adult) (pediatric) Status: Acute Assessment and Plan: history of obstructive sleep apnea, currently intubated (12) DVT prophylaxis: Code(s): Z29.9 - Encounter for prophylactic measures, unspecified Status: Acute Assessment and Plan: continue Lovenox (13) Suspect
--- NOTE | 2019-09-20 10:29 | PCDIET ---
ICU Rounding Note: Patient remains intubated; NPO. MD plans to start tube feedings today if family does not make decision re: plan. Recommend Glucerna 1.2 at goal of 60mL/hr with Pro-Stat flush 1x daily. Last recorded weight is 189.2kg which is increased. Bowel Motility: Bowel sounds hypoactive. No reported BM. Labs Reviewed: Glu (236), K (3.2), Alb (2.6) Meds Noted: Albuterol, Levophed, Aztreonam, Protonix, Novolog, KCl, Vancomycin, Lantus, Vasopressin Additional Notes: No pressure sores documented. Following daily in ICU rounds. Assessing/reassessing every Friday/Friday.
--- NOTE | 2019-09-20 10:38 | PC.NURSE ---
MTS notified of patients current status.
--- NOTE | 2019-09-20 10:46 | PM.PNCARD ---
Progress Note: A&P Assessment and Plan (1) Cardiorespiratory arrest: Code(s): I46.9 - Cardiac arrest, cause unspecified Status: Acute Assessment and Plan: Not on any sedation and not responsive to verbal stimuli. Prolonged down time likely resulting in significant neurological impairment. 2D echocardiogram with Doppler will be ordered which may assist in decision making process for family (2) Shock: Code(s): R57.9 - Shock, unspecified Status: Acute Assessment and Plan: Adjust pressors as needed (3) Volume overload: Code(s): E87.70 - Fluid overload, unspecified Status: Acute Assessment and Plan: Much improved chest x-ray yesterday (4) Encephalopathy: Code(s): G93.40 - Encephalopathy, unspecified Status: Acute Assessment and Plan: Hypoxic. Measurement Supervisor to discuss with family (5) Hypokalemia: Code(s): E87.6 - Hypokalemia Status: Acute Assessment and Plan: being replaced Subjective Date/time seen: 09/20/19 10:46 Interval history: 64yo female who with diabetes and hypertension who was admitted after cardiac arrest. Date of service 09/20/2019: no response to verbal stimuli. She is not on any sedation. Rhythm is stable. Review of Systems Review of Systems: ROS unobtainable: Yes unobtainable due to medical condition and unobtainable due to mental status Cardiovascular: Cardiovascular: Denies leg edema Exam Const: Other: On ventilator support unresponsive HENMT: Mouth: Yes moist mucous membranes Eyes: Sclera: sclerae normal Other: Pupils are fixed Neck: Neck: supple Thyroid: thyroid normal Other: Carotid pulses are grossly intact without bruits JVD cannot be assessed based on her body habitus Resp: Other: Ventilator breath sounds are symmetrical and relatively clear no wheezes no rales Cardio: Rate: regular rate Rhythm: regular rhythm Other: No obvious cardiac murmur PMI is not palpable because of her body habitus GI: Auscultation: normal bowel sounds Skin: General skin exam: normal color Neuro: Other: Unresponsive Objective Data Vital Signs Vital Signs: Vital Signs - 24 hr 09/19/19 11:55 09/19/19 12:00 09/19/19 12:12 Temperature 36.1 C L Pulse Rate 92 92 93 Respiratory Rate 20 Blood Pressure 106/55 L Pulse Oximetry 100 100 09/19/19 13:44 09/19/19 14:45 09/19/19 15:35 Temperature 36.4 C L 36.7 C Pulse Rate 97 94 100 Respiratory Rate 20 20 Blood Pressure 101/60 141/76 H Pulse Oximetry 100 100 100 09/19/19 16:00 09/19/19 16:26 09/19/19 17:42 Temperature 37.1 C Pulse Rate 100 101 H 103 H Respiratory Rate 20 Blood Pressure 149/80 H Pulse Oximetry 100 100 09/19/19 19:57 09/19/19 20:00 09/19/19 22:00 Temperature 37.3 C 37.2 C Pulse Rate 103 H 104 H 103 H Respiratory Rate 20 20 Blood Pressure 105/60 181/88 H Pulse Oximetry 98 98 100 09/19/19 23:19 09/20/19 00:00 09/20/19 01:47 Temperature 36.8 C Pulse Rate 101 H 99 94 Respiratory Rate 20 Blood Pressure 153/76 H Pulse Oximetry 100 100 100 09/20/19 02:00 09/20/19 04:00 09/20/19 04:41 Temperature 36.6 C 36.7 C Pulse Rate 94 95 96 Respiratory Rate 20 20 Blood Pressure 148/73 H 128/66 Pulse Oximetry 100 100 99 09/20/19 06:00 09/20/19 06:15 09/20/19 08:00 Temperature 36.9 C 36.8 C Pulse Rate 97 96 Respiratory Rate 20 20 Blood Pressure 164/79 H 119/63 154/77 H Pulse Oximetry 99 99 09/20/19 09:07 09/20/19 09:53 Temperature 37.1 C Pulse Rate 96 95 Respiratory Rate 20 Blood Pressure 123/61 Pulse Oximetry 98 99 Intake/Output Intake/Output: Intake & Output 09/17/19 09/18/19 09/19/19 09/20/19 23:59 23:59 23:59 23:59 Intake Total 1850 3040 4540 1090 Output Total 8753 8829 4963 116 [facility] [phone] 290 Meds/Results Medications: Active Medications Generic Name Dose Route Start Last Admin Trade Name Freq PRN Reason Stop Dose Admin Albuter
--- NOTE | 2019-09-20 10:55 | PC.NURSE ---
Spoke to MTS. Gave lab values, vital signs, and report to Thais at [facility]. No further interventions at this time. Told they will call back for more information.
--- NOTE | 2019-09-20 11:13 | PM.IMPN ---
Progress Note: A&P Assessment and Plan (1) Cardiac arrest: Code(s): I46.9 - Cardiac arrest, cause unspecified Status: Acute Assessment and Plan: Precipitating etiology not entirely clear, possible pulmonary, cardiac event verses related to septicemia. She had a prolonged down time, at least 30-35 minutes before ROSC. Due to her size, she was unable to have a head CT, and thus cannot rule out intracranial pathology. Keppra added for seizure prophylaxis. Appreciate Neurology and surgical consultant input. EEG on 09/17 showing no brain activity (per report) but final report pending. Family made aware. Spoke with family yesterday and they are waiting on the patient's to come into town which should be today. The family did call in and are still planning on withdrawing care but no decision has been made yet. Patient remains a full code. (2) Septicemia: Code(s): A41.9 - Sepsis, unspecified organism Status: Acute Assessment and Plan: Blood cultures positive for streptococcus thermophilus from both bottles. Source unclear but considered a probiotic. Urinalysis was clear. Continue broad-spectrum IV antibiotics. Follow up on sensitivities. (3) Shock: Code(s): R57.9 - Shock, unspecified Status: Acute Assessment and Plan: Patient required dopamine in the emergency room mostly for bradycardia but has developed hypotension either cardiogenic and/or septic shock. Currently on Levophed and [employer] ST[employer] BAGGER. Continue pressor support to maintain blood pressure. (4) Acute hypercapnic respiratory failure: Code(s): J96.02 - Acute respiratory failure with hypercapnia Status: Acute Assessment and Plan: pH 6.77 with pCO2 of 85 related to prolonged down time. Patient also may have underlying chronic respiratory failure from her untreated sleep apnea. ABG has improved on mechanical ventilation. Appreciate surgical consultant input. Vent management per surgical consultant. (5) Lactic acidosis: Code(s): E87.2 - Acidosis Status: Acute Assessment and Plan: Lactic acidosis related to cardiac arrest and prolonged down time. pH 6.7 with lactic acid of 18.3 on admission. Lactic acid has trended down to 1.7 today. Blood cultures positive as above. Continue broad-spectrum IV antibiotics. (6) Paroxysmal atrial fibrillation: Code(s): I48.0 - Paroxysmal atrial fibrillation Status: Acute Assessment and Plan: She did have periods of bradycardia in the emergency department and was started on dopamine. Heart rate controlled. Patient remaining in normal sinus rhythm. Amiodarone on hold. Xarelto also on hold. Continue to monitor on telemetry. Appreciate Cardiology input. (7) Bilateral pulmonary infiltrates on chest x-ray: Code(s): R91.8 - Other nonspecific abnormal finding of lung field Status: Acute Assessment and Plan: As above (8) Type 2 diabetes mellitus with diabetic polyneuropathy: Code(s): E11.42 - Type 2 diabetes mellitus with diabetic polyneuropathy Status: Acute Assessment and Plan: A1c 6.7. Glucose reviewed on 09/20/19. Glucose elevated in the 200's. Continue Accu-Cheks and cover with sliding scale. Continue hypoglycemic protocol. (9) Hypertension: Qualifiers: Hypertension type: essential hypertension Qualified Code(s): I10 - Essential (primary) hypertension Code(s): I10 - Essential (primary) hypertension Status: Acute Assessment and Plan: Antihypertensives are on hold given shock. Currently on Levophed. (10) Obstructive sleep apnea: Code(s): G47.33 - Obstructive sleep apnea (adult) (pediatric) Status: Acute Assessment and Plan: Patient does not use CPAP at home. Currently on mechanical ventilation as detailed above. (11) Morbid obesity with BMI of 50.0-59.9, adult: Code(s): E66.01 - Morbid (severe) obesity due to excess ca
[2019-09-20 11:23] LABS: Glucose Point of Care 259 (65-105)
--- NOTE | 2019-09-20 12:14 | WPDNEUROPN ---
Review of Systems Review of Systems: All systems reviewed & are unremarkable except as noted in HPI and below Exam Const: Nutritional Appearance: obese Other: comatose with intubation no response to verbal or painful stimuli such as sternal rub eyes in the midline with non reactive pupil 3/3mm no response to doll,s absent facial grimace absent gag and deep sternal rub with no movements in response ,no decerebrate posturing ,DTR completely absent ,plantars with no respnse,as mentioned above eeg was flat .Exam done at 12:15PM Objective Data Vital Signs Vital Signs: Vital Signs - 24 hr 09/19/19 13:44 09/19/19 14:45 09/19/19 15:35 Temperature 36.4 C L 36.7 C Pulse Rate 97 94 100 Respiratory Rate 20 20 Blood Pressure 101/60 141/76 H Pulse Oximetry 100 100 100 09/19/19 16:00 09/19/19 16:26 09/19/19 17:42 Temperature 37.1 C Pulse Rate 100 101 H 103 H Respiratory Rate 20 Blood Pressure 149/80 H Pulse Oximetry 100 100 09/19/19 19:57 09/19/19 20:00 09/19/19 22:00 Temperature 37.3 C 37.2 C Pulse Rate 103 H 104 H 103 H Respiratory Rate 20 20 Blood Pressure 105/60 181/88 H Pulse Oximetry 98 98 100 09/19/19 23:19 09/20/19 00:00 09/20/19 01:47 Temperature 36.8 C Pulse Rate 101 H 99 94 Respiratory Rate 20 Blood Pressure 153/76 H Pulse Oximetry 100 100 100 09/20/19 02:00 09/20/19 04:00 09/20/19 04:41 Temperature 36.6 C 36.7 C Pulse Rate 94 95 96 Respiratory Rate 20 20 Blood Pressure 148/73 H 128/66 Pulse Oximetry 100 100 99 09/20/19 06:00 09/20/19 06:15 09/20/19 08:00 Temperature 36.9 C 36.8 C Pulse Rate 97 96 Respiratory Rate 20 20 Blood Pressure 164/79 H 119/63 154/77 H Pulse Oximetry 99 99 09/20/19 09:07 09/20/19 09:53 09/20/19 11:04 Temperature 37.1 C Pulse Rate 96 95 98 Respiratory Rate 20 20 Blood Pressure 123/61 Pulse Oximetry 98 99 99 09/20/19 11:28 09/20/19 11:58 09/20/19 12:00 Temperature 37.2 C Pulse Rate 96 96 97 Respiratory Rate 20 Blood Pressure 171/78 H Pulse Oximetry 98 99 Intake/Output Intake/Output: Intake & Output 09/17/19 09/18/19 09/19/19 09/20/19 23:59 23:59 23:59 23:59 Intake Total 1850 3040 4540 1940 Output Total 4025 5150 2850 800 Balance -2175 -2110 1690 1140 Meds/Results Medications: Active Medications Generic Name Dose Route Start Last Admin Trade Name Freq PRN Reason Stop Dose Admin Albuterol 2 puff 09/16/19 20:00 Proventil Hfa INHALATION QIDRT CANDACE Dextrose 12.5 gm 09/17/19 00:46 Dextrose 50% Syringe IV PUSH PRN PRN Hypoglycemia Protocol Enoxaparin Sodium 40 mg 09/17/19 09:00 Lovenox SUB-Q DAILY CANDACE Glucagon 1 mg 09/17/19 00:46 Glucagon For Inj IM PRN PRN Hypoglycemia Protocol Glucose 15 gm 09/17/19 00:46 Glutose 15 PO PRN PRN Hypoglycemia Protocol Levetiracetam 1,000 mg in 100 mls @ 400 mls/hr 09/17/19 06:00 09/20/19 06:14 Keppra Iv IVPB Infused Q12H CANDACE Infusion Norepinephrine Bitartrate 8 mg in 250 mls @ 28.1 mls/hr 09/16/19 17:45 09/20/19 09:50 Levophed 8 Mg/D5w 250 Ml IV CONT 15 mcg/min .[id number] CANDACE 28.1 mls/hr Titration Protocol Vancomycin HCl 2,000 mg in 500 mls @ 250 mls/hr 09/16/19 21:00 09/20/19 09:50 Vancomycin 2,000 Mg/D5w 500 Ml IVPB Infused Q12H CANDACE Infusion Dextrose 1,000 mls @ 100 mls/hr 09/17/19 00:46 Dextrose 5% 1,000 Ml IVPB PRN PRN Hypoglycemia Protocol Aztreonam 1 gm/ Dextrose 50 mls @ 100 mls/hr 09/17/19 14:00 09/20/19 06:39 IVPB Infused Q8HR CANDACE Infusion Lactated Ringer's 1,000 mls @ 75 mls/hr 09/18/19 19:30 09/20/19 11:12 Lr - Lactated Ringers Iv IV CONT 75 mls/hr .[id number] CANDACE Administration Vasopressin 100 units/ 100 mls @ 1.2 mls/hr 09/18/19 20:15 09/20/19 08:11 Dextrose IV CONT 0.02 units/min .Q72H CANDACE 1.2 mls/hr Titration Protocol 0.02 UNITS/MIN Insulin Aspart 3 -
[2019-09-20] MEDS: NOREPINEPHRINE 8 MG/D5W 250 ML 8 MG/250 ML BAG 28.1 MG IV CONT (13:42)
[2019-09-20] MEDS: NOREPINEPHRINE 8 MG/D5W 250 ML 8 MG/250 ML BAG 26.3 MG IV CONT (16:32)
[2019-09-20 17:05] LABS: Glucose Point of Care 230 (65-105)
[2019-09-20 23:48] LABS: Glucose Point of Care 278 (65-105)
[2019-09-21] VITALS (17 sets, daily range): BP systolic 101–160; BP diastolic 53–80; PULSE 85–98; RESP 20; TEMP 36.1–37.1; O2SAT 97–99
[2019-09-21] MEDS: NOREPINEPHRINE 8 MG/D5W 250 ML 8 MG/250 ML BAG 18.8 MG IV CONT (00:44)
[2019-09-21] MEDS: LACTATED RINGERS 1,000 ML 75 ML IV CONT (00:45)
[2019-09-21 04:10] LABS: Basophils Percent Auto 0.2 % (0.2-1.2); Eosinophils Absolute Auto 0.3 K/mm3 (0-0.3); Eosinophils Percent Auto 5.5 % (0-4.4); Hematocrit 33.2 % (37.0-47.0); Hemoglobin 10.4 g/dL (12.0-15.0); Immature Granulocyte Absolute 0.11 K/mm3 (0.00-0.031); Lymphocytes Absolute Auto 1.21 K/mm3 (0.9-3.2); Mean Corpuscular HGB Conc 31.3 g/dl (32-36); Mean Corpuscular Volume 89.2 fl (80-100); Mean Platelet Volume 10.2 fl (7.4-10.4); Monocytes Absolute Auto 0.6 K/mm3 (0.1-0.6); Monocytes Percent Auto 10.5 % (2.6-8.5); Neutrophils Absolute Auto 3.3 K/mm3 (1.3-6.7); Neutrophils Percent Auto 59.8 % (45.5-73.1); Platelet Count Result 127 k/mm3 (150-375); Red Blood Count 3.72 M/mm3 (4.2-5.4); Red Cell Distribution Width 14.8 % (11.5-14.5); White Blood Count 5.5 K/mm3 (4.5-10.0)
[2019-09-21 04:28] LABS: Alanine Aminotransferase 117 U/L (4-35); Albumin Level 2.5 g/dL (3.5-5.1); Alkaline Phosphatase 163 U/L (38-126); Aspartate Amino Transferase 103 U/L (14-36); Bilirubin,Total 0.9 mg/dL (0.2-1.3); Blood Urea Nitrogen 17 mg/dL (7-17); Calcium 9.2 mg/dL (8.4-10.2); Carbon Dioxide 26 mmol/L (22-30); Chloride 113 mmol/L (98-107); Estimated CRCL calculation 90 ml/min; Estimated Glomerular Filt Rate > 60; Glucose 277 mg/dL (65-105); Magnesium 1.7 mg/dL (1.6-2.3); Phosphorus 2.9 mg/dL (2.5-4.5); Potassium 3.1 mmol/L (3.4-5.0); Sodium 140 mmol/L (137-145)
[2019-09-21 04:29] LABS: Lactic Acid 1.7 mmol/L (0.7-2.1)
[2019-09-21 05:46] LABS: Alveolar/Arterial O2 Gradient 124.2 mmHg; Carboxyhemoglobin 0.6 % THb (0-2.0); Fractional Inspired Oxygen 35 %; HCO3 ABG 20.2 mEq/l (22.0-26.0); Oxygen Content ABG 18.8 %vol (16.0-22.0); Oxygen Saturation ABG 97.1 % (95.0-100.0); PO2 ABG 89.3 mmHg (80.0-100.0); PO2 FiO2 Ratio Arterial Blood 2.55 %; Reduced Hemoglobin 3.4 %THb (0-5.0); Total Hemoglobin 13.9 g/dL (12.0-18.0); pH ABG 7.432 (7.350-7.450)
[2019-09-21 05:47] LABS: Glucose Point of Care 261 (65-105)
[2019-09-21 05:47] LABS: Device VENTILATOR; Site Drawn ARTLINE
[2019-09-21 05:49] LABS: Arterial Blood Gas PEEP 12 cmH2O; Arterial Blood Gas Tidal Volume 450 ml; Arterial Blood Gas Vent Mode CMV; Arterial Blood Gas Ventilator rate 20 /MIN
[2019-09-21] MEDS: levETIRAcetam 1000MG/NACL100ML 1,000 MG/100 ML BAG 400 MG IVPB (05:52)
[2019-09-21] MEDS: AZTREONAM 1 GM in DEXTROSE 5% IN WATER 50 ML IVPB (05:52)
[2019-09-21] MEDS: INSULIN ASPART (*BKC) 100 UNITS/ML SUB-Q ×2 (05:53→11:32)
[2019-09-21] MEDS: CENTRAL LINE FLUSH 10 ML IV PUSH ×2 (05:58→11:29)
[2019-09-21] MEDS: INSULIN GLARGINE (*BKC) 100 UNITS/ML 7 UNITS SUB-Q (07:31)
[2019-09-21] MEDS: PANTOPRAZOLE SODIUM IV 40 MG VIAL IV PUSH (07:31)
[2019-09-21 07:44] LABS: Glucose Point of Care 259 (65-105)
[2019-09-21 08:32] LABS: Vancomycin Trough 23.6 ug/mL (10.0-20.0)
[2019-09-21] MEDS: POTASSIUM CHLORIDE 20 MEQ PACKET (FOR LIQUID) 40 MEQ PO ×2 (08:36→11:29)
--- NOTE | 2019-09-21 08:59 | PM.IMPN ---
Progress Note: A&P Assessment and Plan (1) Anoxic brain injury: Code(s): G93.1 - Anoxic brain damage, not elsewhere classified Status: Acute Assessment and Plan: Result of cardiac arrest with prolonged down time. EEG on 09/17/2019 with no brain activity seen. Family has expressed desire to withdraw care as at some point. Family now here this afternoon and has decided to proceed with withdrawing care. With cytotoxic edema and swelling throughout the brain with effacement of the subarachnoid spaces, ventricles and basal cisterns suggesting sequela of global anoxic injury. Appreciate help from auto air conditioning mechanic and neurologist. (2) Cardiac arrest: Code(s): I46.9 - Cardiac arrest, cause unspecified Status: Acute Assessment and Plan: Precipitating etiology not entirely clear, possible pulmonary, cardiac event verses related to septicemia. She had a prolonged down time, at least 30-35 minutes before ROSC. Due to her size, she was unable to have a head CT, and thus cannot rule out intracranial pathology. Keppra still in place for seizure prophylaxis. Appreciate Neurology and auto air conditioning mechanic input. EEG reported to show no brain activity on 09/17/2019. (3) Septicemia: Code(s): A41.9 - Sepsis, unspecified organism Status: Acute Assessment and Plan: Blood cultures x 2 positive for streptococcus thermophilus. Source unclear but considered a probiotic. Urinalysis was negative. Remains on IV aztreonam and vancomcyin. (4) Shock: Code(s): R57.9 - Shock, unspecified Status: Acute Assessment and Plan: Patient required dopamine in the emergency room mostly for bradycardia but has developed hypotension either cardiogenic and/or septic shock. Remains on Levophed and vasopressin. Blood pressure reviewed on 09/21/2019 and stable. (5) Acute hypercapnic respiratory failure: Code(s): J96.02 - Acute respiratory failure with hypercapnia Status: Acute Assessment and Plan: Result of cardiac arrest. Does have chronic underlying respiratory failure from her untreated sleep apnea. On ventilation with plan out to moved comfort care as noted. (6) Lactic acidosis: Code(s): E87.2 - Acidosis Status: Acute Assessment and Plan: Lactic acidosis related to cardiac arrest and prolonged down time. Most recent lactic acid 1.7. On IV antibiotics as noted above. (7) Paroxysmal atrial fibrillation: Code(s): I48.0 - Paroxysmal atrial fibrillation Status: Acute Assessment and Plan: Was started on dopamine in the emergency room with periods of bradycardia. Telemetry reviewed on 09/21/2019 with sinus rhythm. Amiodarone remains on hold. Xarelto also on hold. Appreciate input from cardiology. (8) Bilateral pulmonary infiltrates on chest x-ray: Code(s): R91.8 - Other nonspecific abnormal finding of lung field Status: Acute Assessment and Plan: Increasing bilateral perihilar opacities and opacities in left lower lung zone. Remains on IV antibiotics as noted. Mechanical ventilation as noted. Plan for withdrawal of care as noted. (9) Type 2 diabetes mellitus with diabetic polyneuropathy: Qualifiers: Diabetes mellitus jail insulin use: without manager terminal use Qualified Code(s): E11.42 - Type 2 diabetes mellitus with diabetic polyneuropathy Code(s): E11.42 - Type 2 diabetes mellitus with diabetic polyneuropathy Status: Acute Assessment and Plan: HgbA1C 6.7. Glucose reviewed on 09/21/2019 still in the 200s. Now on Lantus. Sliding scale insulin available. Will continue to monitor. (10) Hypertension: Qualifiers: Hypertension type: essential hypertension Qualified Code(s): I10 - Essential (primary) hypertension Code(s): I10 - Essential (primary) hypertension Status: Acute Assessment and Plan: Blood pressure reviewed on 09/21/2019 and stable with press
--- NOTE | 2019-09-21 10:18 | PM.PNCARD ---
Progress Note: A&P Assessment and Plan (1) Cardiorespiratory arrest: Code(s): I46.9 - Cardiac arrest, cause unspecified Status: Acute Assessment and Plan: Not on any sedation and not responsive to verbal stimuli. Prolonged down time likely resulting in significant neurological impairment. (2) Shock: Code(s): R57.9 - Shock, unspecified Status: Acute Assessment and Plan: Adjust pressors as needed (3) Volume overload: Code(s): E87.70 - Fluid overload, unspecified Status: Acute (4) Encephalopathy: Code(s): G93.40 - Encephalopathy, unspecified Status: Acute Assessment and Plan: Hypoxic. Reception Specialist to discuss with family : Repeat CT scan show significant edema consistent with anoxic injury (5) Hypokalemia: Code(s): E87.6 - Hypokalemia Status: Acute Subjective Date/time seen: 09/21/19 10:18 Interval history: 64yo female who with diabetes and hypertension who was admitted after cardiac arrest. Date of service 09/21/2019: no response to verbal stimuli. She is not on any sedation. Rhythm is stable. Review of Systems Review of Systems: ROS unobtainable: Yes unobtainable due to medical condition and unobtainable due to mental status Cardiovascular: Cardiovascular: Denies leg edema Exam Const: Other: On ventilator support unresponsive HENMT: Mouth: Yes moist mucous membranes Eyes: Sclera: sclerae normal Other: Pupils are fixed Neck: Neck: supple Thyroid: thyroid normal Other: Carotid pulses are grossly intact without bruits JVD cannot be assessed based on her body habitus Resp: Other: Ventilator breath sounds are symmetrical and relatively clear no wheezes no rales Cardio: Rate: regular rate Rhythm: regular rhythm Other: No obvious cardiac murmur PMI is not palpable because of her body habitus GI: Auscultation: normal bowel sounds Skin: General skin exam: normal color Neuro: Other: Unresponsive Objective Data Vital Signs Vital Signs: Vital Signs - 24 hr 09/20/19 11:04 09/20/19 11:28 09/20/19 11:58 Temperature 37.2 C Pulse Rate 98 96 96 Respiratory Rate 20 20 Blood Pressure 171/78 H Pulse Oximetry 99 98 99 09/20/19 12:00 09/20/19 14:00 09/20/19 14:08 Temperature 37.5 C Pulse Rate 97 101 H 99 Respiratory Rate 20 Blood Pressure 141/67 H Pulse Oximetry 99 98 09/20/19 16:00 09/20/19 17:07 09/20/19 17:56 Temperature 37.6 C H Pulse Rate 103 H 100 102 H Respiratory Rate 20 Blood Pressure 135/65 Pulse Oximetry 99 99 09/20/19 17:57 09/20/19 20:00 09/20/19 20:30 Temperature 37.6 C H 37.5 C Pulse Rate 103 H 98 98 Respiratory Rate 20 20 Blood Pressure 167/76 H 171/74 H Pulse Oximetry 99 99 99 09/20/19 22:00 09/20/19 22:55 09/21/19 00:00 Temperature 37.2 C 36.8 C Pulse Rate 95 97 94 Respiratory Rate 20 20 Blood Pressure 151/78 H 150/75 H Pulse Oximetry 99 99 99 09/21/19 02:00 09/21/19 02:10 09/21/19 04:00 Temperature 36.3 C L 36.3 C L Pulse Rate 89 90 91 Respiratory Rate 20 20 Blood Pressure 160/80 H 158/78 H Pulse Oximetry 99 99 99 09/21/19 05:14 09/21/19 06:00 09/21/19 07:26 Temperature 36.1 C L Pulse Rate 87 89 85 Respiratory Rate 20 20 Blood Pressure 114/55 L Pulse Oximetry 99 98 98 09/21/19 07:32 09/21/19 08:00 09/21/19 09:56 Temperature 36.3 C L 36.4 C Pulse Rate 86 86 89 Respiratory Rate 20 20 Blood Pressure 102/53 L 101/55 L Pulse Oximetry 98 97 Intake/Output Intake/Output: Intake & Output 09/18/19 09/19/19 09/20/19 09/21/19 23:59 23:59 23:59 23:59 Intake Total 3040 4540 2890 1450 Output Total 5150 2850 1400 700 Balance -2110 1690 1490 750 Meds/Results Medications: Active Medications Generic Name Dose Route Start Last Admin Trade Name Freq PRN Reason Stop Dose Admin Albuterol 2 puff 09/16/19 20:00 Proventil Hfa INHALATION QIDRT CANDACE Dextrose 12.5 gm 09/17/19 00:46 Dextrose 50% Syr
--- NOTE | 2019-09-21 10:27 | PCDIET ---
Nutrition Follow-Up Complete: Nutrition Diagnosis: Inadequate oral intake related to oral intubation as evidenced by NPO. Nutrition Goal: Patient to meet estimated nutritional needs. Goal not met. Dr. Odell to speak with patient's family today. CT head showed global anoxic injury. If aggressive care is continued, recommend Glucerna 1.2 at goal of 60mL/hr. Last recorded weight is 191.1 kg which is increased. +I/O. Bowel Motility: No documented BM yet. Bowel sounds hypoactive. Labs Reviewed: Glu (259), K (3.1), Alb (2.5) Meds Noted: Albuterol, Aztreonam, Novolog, Lantus, Levophed, Protonix, KCl, Vancomycin, Vasopressin Additional Notes: Left posterior thigh with maceration. Left anterior lower leg puncture. No pressure sores documented. Will continue to monitor with same goal if aggressive care is continued. Nutrition Monitoring and Evaluation: Follow up every 3 days.
--- NOTE | 2019-09-21 10:53 | WPDINTPN ---
Progress Note: A&P Assessment and Plan (1) Anoxic brain injury: Code(s): G93.1 - Anoxic brain damage, not elsewhere classified Status: Acute Assessment and Plan: patient with prolonged cardiac arrest, between 25-30 minutes before ROSC - she has been on Keppra given prolonged cardiac arrest and risk of seizures - on clinical exam patient shows no evidence of neurological activity - patient was seen by neurologist and exam is consistent - EEG was done on 09/17/2019 and showed no cerebral neuronal activity -Head CT done today Cytotoxic edema and swelling throughout the brain with effacement of the subarachnoid spaces, ventricles and basal cisterns suggesting sequela of global anoxic injury. - case discussed with Dr. Rose all these point towards by neurological criteria. see below for additional details (2) Shock: Code(s): R57.9 - Shock, unspecified Status: Acute Assessment and Plan: patient presented with cardiac arrest, now with shock, cardiogenic, septic, hypovolemia, possible aspiration - blood cultures growing Streptococcus thermophilus 2/2 bottles which are pansensitive - patient on vancomycin and aztreonam. I will discontinue vancomycin at this time - continue Levophed and vasopressin at this time to maintain mean arterial pressures greater than 65 mmHg (3) Cardiac arrest: Code(s): I46.9 - Cardiac arrest, cause unspecified Status: Acute Assessment and Plan: patient with prolonged cardiac arrest, between 25-30 minutes before ROSC - lactic acid normalized - cardiac arrest most likely respiratory event, cardiac event, given her chest x-ray shows significant pulmonary edema bilaterally - patient has been swabbed for COVID-19 which is NEGATIVE - appreciate cardiology evaluation and recommendation. (4) Acute hypercapnic respiratory failure: Code(s): J96.02 - Acute respiratory failure with hypercapnia Status: Acute Assessment and Plan: acute hypercapnic respiratory failure likely related to pulmonary edema, pneumonia, congestive heart failure, COVID-19 - continue CMV mode of ventilation, - chest x-ray and ABGs reviewed. - continue bronchodilators (5) Metabolic acidosis: Code(s): E87.2 - Acidosis Status: Acute Assessment and Plan: RESOLVED: metabolic acidosis from lactic acidosis, cardiac arrest, decreased organ perfusion - lactic acid normalized (6) Type 2 diabetes mellitus with diabetic polyneuropathy: Code(s): E11.42 - Type 2 diabetes mellitus with diabetic polyneuropathy Status: Acute Assessment and Plan: patient is hyperglycemic, continue Accu-Cheks, Lantus and moderate dose sliding scale (7) Paroxysmal atrial fibrillation: Code(s): I48.0 - Paroxysmal atrial fibrillation Status: Acute Assessment and Plan: patient with history of paroxysmal atrial fibrillation, she is on Xarelto at home - in normal sinus rhythm at this time. will monitor for now, hold amiodarone and Xarelto for now (8) GERD (gastroesophageal reflux disease): Code(s): K21.9 - Gastro-esophageal reflux disease without esophagitis Status: Acute Assessment and Plan: on PPI (9) Morbid obesity with BMI of 50.0-59.9, adult: Code(s): E66.01 - Morbid (severe) obesity due to excess calories; Z68.43 - Body mass index (BMI) 50.0-59.9, adult Status: Acute Assessment and Plan: chronic (10) Hypercholesterolemia: Code(s): E78.00 - Pure hypercholesterolemia, unspecified Status: Acute Assessment and Plan: patient on atorvastatin at home, will hold for now (11) HTN (hypertension): Qualifiers: Hypertension type: essential hypertension Qualified Code(s): I10 - Essential (primary) hypertension Code(s): I10 - Essential (primary) hypertension Status: Acute Assessment and Plan: patient is i
[2019-09-21 11:55] LABS: Glucose Point of Care 260 (65-105)
--- NOTE | 2019-09-21 18:40 | PM.DDS ---
Discharge Sum: Prov Provider Primary care physician: Matteo Yen DO Admitting provider: Calvin Garcia MD Attending physician on admission: Billy Little Consults: 09/16/19 14:21 Consult to Physician Routine Comment: Consulting Provider: Dalila Stephens Reason for consultation: icu Has provider been notified: Yes 09/17/19 07:40 Consult to Physician Routine Comment: spoke with Misty Dinh n.p. Consulting Provider: Tank Mann arch cushion skiving machine operator/MD group to consult: CARDIOLOGY Reason for consultation: cardiac arrest Has provider been notified: Yes Consult to Physician Routine Comment: spoke with dr. Weiss with information for consult Consulting Provider: Amanuel Rose arch cushion skiving machine operator/MD group to consult: NEUROLOGY Reason for consultation: CARDIAC ARREST Has provider been notified: Yes Pronouncing clinician: Jama Cordoba Discharge Sum: Diag PCOD Anoxic Brain Injury Contributing Factors (1) Cardiac arrest: (2) Septicemia: (3) Shock: (4) Acute hypercapnic respiratory failure: (5) Lactic acidosis: (6) Paroxysmal atrial fibrillation: (7) Bilateral pulmonary infiltrates on chest x-ray: (8) Type 2 diabetes mellitus with diabetic polyneuropathy: (9) Hypertension: (10) Obstructive sleep apnea: (11) Morbid obesity with BMI of 50.0-59.9, adult: Discharge Sum: Summary Date and Time Date of admission: 09/16/19 14:20 Date of : 09/21/19 Time of : 17:25 Summary Details: Procedures: Arterial and central line placements by Dr. Stephens on 09/16/2019. Chief Complaint: Cardiac arrest. History of Present Illness: Patient is a 64-year-old woman with known type 2 diabetes mellitus, paroxysmal atrial fibrillation, hypertension, obstructive sleep apnea and several other comorbidities who present to the emergency room by EMS from home after witnessed cardiac arrest. Patient had been in rehab at the beginning of 2019 for 1 and half months but was back in her own apartment for a few months prior to this event. She has been bed-bound since her stay in rehab and is cared for by her daughter. She seemed to be in her usual state of health with no complaints according to her daughter. On the morning of presentation her daughter and grandchild were attempting to transfer her to a wheelchair using her Debbie lift when she started to panic. Daughter reported patient was complaining of shortness of breath and breathing rapidly. Daughter then went to get her Xanax but when she returned the patient became unresponsive. EMS was called arriving 5-10 minutes later. Patient was found apneic and in PE a. She was intubated in the field and received 3 rounds of epinephrine prior to return of spontaneous circulation. In the emergency room, patient was also noted to have bilateral pulmonary infiltrates on chest x-ray concerning for possible aspiration pneumonia. She was admitted to the ICU for further evaluation and treatment. Course in Hospital: Patient was admitted to the ICU as noted and remained there for the duration of her stay. The initial precipitating event of a cardiac event was not entirely clear but she did have her prolonged down time with at least 25 minutes before ROSC. Due to her size she was initially not able to have CT brain done. She was noted to have bradycardia initially and started on dopamine. Rigger Helper, employee health nurse and neurologist were all consulted. Was unable to be placed on hypothermia protocol given shock for which she did require pressor agents. She was started on IV Keppra. Patient did eventually grow Streptococcus Cushing in 2 blood cultures with source unclear. She was on IV aztreonam and vancomycin. Initial lactic acid did improve. COVID-19 testing was performed and negative. Unfortunately, patient's mental status did not improve. As noted, she was seen by Neurology. EEG was obtained on 09/17/2019 with official report indicating no brain activity. T
== END 2019-09-21 19:00 | disposition expired | DRG 720 ==
LOC: ANHED 13:14 → ANHICU 14:57
PROVIDERS: Internal Medicine; Physician Assistant; Admitting Provider Family Medicine; Emergency Provider Emergency Medicine; PCP Internal Medicine; Visit Provider Hospitalist
DX: A40.8 Other streptococcal sepsis (principal); Z20.828 Contact with and (suspected) exposure to other viral communicable diseases; R65.21 Severe sepsis with septic shock; R57.0 Cardiogenic shock; E87.2 Acidosis; J69.0 Pneumonitis due to inhalation of food and vomit; I46.8 Cardiac arrest due to other underlying condition; J96.02 Acute respiratory failure with hypercapnia; K21.9 Gastro-esophageal reflux disease without esophagitis; E87.6 Hypokalemia; G93.40 Encephalopathy, unspecified; E11.42 Type 2 diabetes mellitus with diabetic polyneuropathy; I11.0 Hypertensive heart disease with heart failure; I50.9 Heart failure, unspecified; G93.1 Anoxic brain damage, not elsewhere classified; E78.00 Pure hypercholesterolemia, unspecified; R16.0 Hepatomegaly, not elsewhere classified; G47.33 Obstructive sleep apnea (adult) (pediatric); M19.90 Unspecified osteoarthritis, unspecified site; E11.65 Type 2 diabetes mellitus with hyperglycemia; I48.0 Paroxysmal atrial fibrillation; E66.01 Morbid (severe) obesity due to excess calories; R91.8 Other nonspecific abnormal finding of lung field; Z68.44 Body mass index [BMI] 60.0-69.9, adult; Z90.49 Acquired absence of other specified parts of digestive tract; Z90.710 Acquired absence of both cervix and uterus; Z79.01 Long term (current) use of anticoagulants
CPT/HCPCS: 36415; 36556; 36600; 70450; 71045; 80048; 80053; 80202; 81003; 82375; 82550; 82805; 83036; 83050; 83605; 83735; 83880; 84100; 84439; 84443; 84484; 85025; 85610; 85730; 87040; 87077; 87186; 87635; 92950; 93005; 93306; 94003; 95816; 96365; 96366; 96367; 96368; 99291; A9270; C1751; C9113; J0171; J0330; J0696; J0743; J1265; J1815; J1940; J1953; J2250; J3370; J3480; J7030; J7120; U0003